=== PATIENT | male | born 1950 | race African-American/Black ===

== ENCOUNTER 2017-07-30 10:45 | Inpatient (IN) ==
[2017-07-30 11:34] LABS: Basophils % 0.1 % (0.0-0.8); Eosinophils # 0.2 10*3/uL (0.0-0.87); Eosinophils % 1.3 % (0.00-10.9); Hematocrit 34.4 VOL% (42.0-52.0); Hemoglobin 10.7 GM/DL (14.0-18.0); Immature Granulocytes % 0.7 %; Lymphocytes # 1.6 10*3/uL (1.4-4.0); Lymphocytes % 11.3 % (21.2-54.2); Mean Corpuscular HGB Conc 31.1 GM/DL (32-36); Mean Corpuscular Hemoglobin 27 PG (27-34); Mean Corpuscular Volume 87.3 FL (87-102); Mean Platelet Volume 12.3 FL (9.6-12.0); Monocytes # 1.4 10*3/uL (0.11-0.8); Monocytes % 10.2 % (1.7-12.7); Neutrophils # 10.5 10*3/uL (1.4-7.4); Neutrophils % 76.4 % (38.7-73.9); Platelet Count 193 T/CUMM (130-400); Red Blood Count 3.94 MC/CUMM (3.8-5.5); Red Cell Distribution Width 14.9 % (9.3-17.3); White Blood Count 13.7 T/CUMM (4-12)
[2017-07-30 11:53] LABS: Band Neutrophils 1 % (0-10); Eosinophils 1 % (0-10); Hypochromasia 1+; Lymphocytes 17 % (20-55); Segmented Neutrophils 73 % (50-85); Total Cells Counted 100
[2017-07-30 11:54] LABS: Microcytosis Slight; Platelet Estimate Adequate
[2017-07-30 12:01] LABS: Calcium 9.1 MG/DL (8.5-10.1); Osmolality,Calculated 286.3 MOS/KG (273-304); Potassium 3.8 MMOL/L (3.5-5.1); Uric Acid 5.6 MG/DL (3.5-7.2)
[2017-07-30] MEDS ORDERED: CEFTAROLINE 600 MG in SODIUM CHLORIDE 0.9% 100 ML IV STA (12:11)
[2017-07-30] MEDS ORDERED: CEFTAROLINE 600 MG VIAL IV ONE (12:22)
[2017-07-30] MEDS ORDERED: SODIUM CHLORIDE 0.9% 1,000 ML IV SCH (15:43)
[2017-07-30] MEDS ORDERED: ENOXAPARIN 40 MG/0.4 ML SYRINGE SUBCUT SCH (15:43)
[2017-07-30] MEDS ORDERED: MORPHINE 2 MG/1 ML SYRINGE IV PRN (15:43)
[2017-07-30] MEDS: CEFTAROLINE 600 MG in SODIUM CHLORIDE 0.9% 100 ML IV SCH (17:47)
[2017-07-30 22:59] LABS: Apearance,Urine CLEAR (Clear); Bilirubin,Urine Negative (Negative); Blood, Urine Negative (Negative); Glucose,Urine (UA) Negative (Negative); Hyaline Casts,Urine 1 /LPF (0-3); Ketones,Urine Negative (Negative); Mucus,Urine Occasional /LPF (Occasional); Nitrite,Urine Negative (Negative); Protein,Urine 100 MG/DL; RBC,Urine <1 /HPF (0-4); Urine Color Yellow (Yellow); Urine Specific Gravity 1.016 (1.001-1.035); WBC,Urine 1 /HPF (0-6)
[2017-07-31] MEDS ORDERED: hydrALAZINE 20 MG/1 ML VIAL IV PRN (00:36)
[2017-07-31] MEDS: CEFTAROLINE 600 MG in SODIUM CHLORIDE 0.9% 100 ML IV SCH ×2 (05:00→14:31)
[2017-07-31 06:07] LABS: Basophils % 0.4 % (0.0-0.8); Eosinophils # 0.2 10*3/uL (0.0-0.87); Eosinophils % 1.5 % (0.00-10.9); Hematocrit 30.1 VOL% (42.0-52.0); Hemoglobin 9.7 GM/DL (14.0-18.0); Immature Granulocytes % 0.7 %; Immature Granulocytes Absolute 0.08 #; Lymphocytes # 1.3 10*3/uL (1.4-4.0); Lymphocytes % 12.2 % (21.2-54.2); Mean Corpuscular HGB Conc 32.2 GM/DL (32-36); Mean Corpuscular Hemoglobin 27 PG (27-34); Mean Corpuscular Volume 84.8 FL (87-102); Mean Platelet Volume 12.1 FL (9.6-12.0); Monocytes # 1.2 10*3/uL (0.11-0.8); Monocytes % 10.7 % (1.7-12.7); Neutrophils # 8.1 10*3/uL (1.4-7.4); Neutrophils % 74.5 % (38.7-73.9); Platelet Count 182 T/CUMM (130-400); Red Blood Count 3.55 MC/CUMM (3.8-5.5); Red Cell Distribution Width 14.7 % (9.3-17.3); White Blood Count 10.9 T/CUMM (4-12)
[2017-07-31 06:33] LABS: Calcium 8.4 MG/DL (8.5-10.1); Osmolality,Calculated 286.1 MOS/KG (273-304); Potassium 3.9 MMOL/L (3.5-5.1)
[2017-07-31 06:37] LABS: Hypochromasia 2+; Microcytosis 2+
[2017-07-31] MEDS ORDERED: DILTIAZEM CD 120 MG CAPSULE PO SCH (09:00)
[2017-07-31] MEDS ORDERED: ROSUVASTATIN 10 MG TABLET PO SCH (09:00)
[2017-07-31] MEDS ORDERED: MULTIVITAMIN (CENTRUM) TABLET PO SCH (09:00)
[2017-07-31] MEDS ORDERED: amLODIPine 5 MG TABLET PO SCH (09:00)
[2017-07-31] MEDS ORDERED: LOSARTAN 50 MG TABLET PO SCH (09:00)
[2017-07-31] MEDS ORDERED: PANTOPRAZOLE 40 MG TABLET PO SCH (09:00)
[2017-07-31] MEDS ORDERED: FUROSEMIDE 20 MG TABLET PO SCH (09:00)
[2017-07-31] MEDS ORDERED: SODIUM CHLORIDE 0.9% 1,000 ML IV SCH (09:30)
[2017-07-31 16:04] VITALS: BP 151/79
== END 2017-07-31 16:40 | disposition home health service (06) | DRG 603 ==
LOC: N.ED 10:45 → N.EDINP 12:56 → N.2E 15:30

== ENCOUNTER 2017-10-24 14:09 | Observation (INO) ==
[2017-10-24 14:51] LABS: Basophils % 0.5 % (0.0-0.8); Eosinophils # 0.3 10*3/uL (0.0-0.87); Eosinophils % 4.9 % (0.00-10.9); Hematocrit 36.4 VOL% (42.0-52.0); Hemoglobin 11.7 GM/DL (14.0-18.0); Immature Granulocytes % 0.3 %; Immature Granulocytes Absolute 0.02 #; Lymphocytes # 1.3 10*3/uL (1.4-4.0); Mean Corpuscular HGB Conc 32.1 GM/DL (32-36); Mean Corpuscular Hemoglobin 27 PG (27-34); Mean Corpuscular Volume 85.2 FL (87-102); Monocytes # 0.6 10*3/uL (0.11-0.8); Monocytes % 9.6 % (1.7-12.7); Neutrophils # 3.8 10*3/uL (1.4-7.4); Neutrophils % 63.7 % (38.7-73.9); Platelet Count 199 T/CUMM (130-400); Red Blood Count 4.27 MC/CUMM (3.8-5.5); Red Cell Distribution Width 15.9 % (9.3-17.3)
[2017-10-24 15:15] LABS: Alanine Aminotransferase 24 U/L (16-61); Albumin 2.7 G/DL (3.4-5.0); Alkaline Phosphatase 109 U/L (45-117); Aspartate Amino Transferase 28 U/L (0-37); Bilirubin,Total < 0.39 MG/DL (0.2-1.0); Blood Urea Nitrogen 24 MG/DL (7-18); Calcium 8.8 MG/DL (8.5-10.1); Glucose 102 MG/DL (74-106); Potassium 3.7 MMOL/L (3.5-5.1); Sodium 143 MMOL/L (136-145); Total Protein 6.5 G/DL (6.4-8.3)
[2017-10-24 15:16] LABS: Troponin I Only 0.059 NG/ML (0.00-0.045)
[2017-10-24] MEDS ORDERED: METOPROLOL TARTRATE 50 MG TABLET PO STA (16:00)
[2017-10-24] MEDS ORDERED: FUROSEMIDE 80 MG TABLET PO STA (16:00)
[2017-10-24] MEDS ORDERED: NITROGLYCERIN 2% OINT 1 INCH/GM PACK TOP STA (16:02)
[2017-10-24] MEDS ORDERED: ASPIRIN 325 MG TABLET PO STA (16:08)
[2017-10-24] MEDS ORDERED: hydrALAZINE 20 MG/1 ML VIAL IV STA (17:07)
[2017-10-24] MEDS ORDERED: ACETAMINOPHEN 325 MG TABLET PO PRN (17:55)
[2017-10-24] MEDS ORDERED: ONDANSETRON 4 MG/2 ML VIAL IV PRN (17:55)
[2017-10-24] MEDS: hydrALAZINE 25 MG TABLET PO SCH (20:34)
[2017-10-24] MEDS: ENOXAPARIN 40 MG/0.4 ML SYRINGE SUBCUT SCH (20:35)
[2017-10-25 05:26] LABS: Basophils % 0.6 % (0.0-0.8); Eosinophils # 0.4 10*3/uL (0.0-0.87); Eosinophils % 4.9 % (0.00-10.9); Hemoglobin 11.5 GM/DL (14.0-18.0); Immature Granulocytes % 0.4 %; Immature Granulocytes Absolute 0.03 #; Lymphocytes # 1.9 10*3/uL (1.4-4.0); Lymphocytes % 26.5 % (21.2-54.2); Mean Corpuscular HGB Conc 31.9 GM/DL (32-36); Mean Corpuscular Hemoglobin 27 PG (27-34); Mean Corpuscular Volume 84.3 FL (87-102); Mean Platelet Volume 12.1 FL (9.6-12.0); Monocytes # 0.7 10*3/uL (0.11-0.8); Monocytes % 10.3 % (1.7-12.7); Neutrophils # 4.1 10*3/uL (1.4-7.4); Neutrophils % 57.3 % (38.7-73.9); Platelet Count 200 T/CUMM (130-400); Red Blood Count 4.27 MC/CUMM (3.8-5.5); Red Cell Distribution Width 15.9 % (9.3-17.3); White Blood Count 7.2 T/CUMM (4-12)
[2017-10-25] MEDS: hydrALAZINE 20 MG/1 ML VIAL IV PRN ×2 (05:30→15:53)
[2017-10-25 06:03] LABS: Calcium 8.6 MG/DL (8.5-10.1); Potassium 3.8 MMOL/L (3.5-5.1)
[2017-10-25] MEDS ORDERED: DILTIAZEM CD 240 MG CAPSULE PO SCH (09:00)
[2017-10-25] MEDS ORDERED: FUROSEMIDE 40 MG TABLET PO SCH (09:00)
[2017-10-25] MEDS: hydrALAZINE 25 MG TABLET PO SCH (09:11)
[2017-10-25] MEDS: LOSARTAN 50 MG TABLET PO SCH (09:11)
[2017-10-25] MEDS: MULTIVITAMIN (CENTRUM) TABLET PO SCH (09:11)
[2017-10-25] MEDS: ROSUVASTATIN 10 MG TABLET PO SCH (09:11)
[2017-10-25] MEDS: METOPROLOL SUCCINATE XL 25 MG TABLET PO SCH (09:11)
[2017-10-25] MEDS ORDERED: FUROSEMIDE 40 MG/4 ML VIAL IV ONE (11:42)
[2017-10-25] MEDS ORDERED: FUROSEMIDE 40 MG/4 ML VIAL IV SCH (12:00)
[2017-10-25] MEDS: FUROSEMIDE 40 MG/4 ML VIAL IV SCH (21:09)
[2017-10-25] MEDS: ENOXAPARIN 40 MG/0.4 ML SYRINGE SUBCUT SCH (21:09)
[2017-10-26] MEDS ORDERED: NIFEdipine 10 MG CAPSULE PO ONE (01:00)
[2017-10-26] MEDS ORDERED: cloNIDine 0.1 MG TABLET PO ONE (03:35)
[2017-10-26 06:29] LABS: Calcium 8.4 MG/DL (8.5-10.1); Osmolality,Calculated 288.1 MOS/KG (273-304); Potassium 3.9 MMOL/L (3.5-5.1)
[2017-10-26 07:57] VITALS: BP 138/77
[2017-10-26] MEDS: MULTIVITAMIN (CENTRUM) TABLET PO SCH (09:20)
[2017-10-26] MEDS: ROSUVASTATIN 10 MG TABLET PO SCH (09:20)
[2017-10-26] MEDS: LOSARTAN 50 MG TABLET PO SCH (09:20)
[2017-10-26] MEDS: METOPROLOL SUCCINATE XL 25 MG TABLET PO SCH (09:20)
[2017-10-26] MEDS: FUROSEMIDE 40 MG/4 ML VIAL IV SCH (09:20)
== END 2017-10-26 11:58 | disposition home or self-care (01) ==
LOC: N.ED 14:09 → N.EDINP 14:09 → N.TELEN 18:21
PROVIDERS: ADMIT Internal Medicine; ATTEND Internal Medicine

== ENCOUNTER 2018-01-19 10:00 | Inpatient (IN) ==
[2018-01-19] MEDS ORDERED: FUROSEMIDE 100 MG/10 ML VIAL IV STA (10:24)
[2018-01-19] MEDS ORDERED: NITROGLYCERIN 2% OINT 1 INCH/GM PACK TOP STA (10:24)
[2018-01-19 10:53] LABS: Basophils % 0.2 % (0.0-0.8); Eosinophils # 0.1 10*3/uL (0.0-0.87); Hematocrit 35.6 VOL% (42.0-52.0); Hemoglobin 11.3 GM/DL (14.0-18.0); Immature Granulocytes % 0.4 %; Immature Granulocytes Absolute 0.03 #; Lymphocytes # 0.9 10*3/uL (1.4-4.0); Lymphocytes % 10.5 % (21.2-54.2); Mean Corpuscular HGB Conc 31.7 GM/DL (32-36); Mean Corpuscular Hemoglobin 27 PG (27-34); Mean Corpuscular Volume 85.6 FL (87-102); Mean Platelet Volume 13.8 FL (9.6-12.0); Monocytes # 0.8 10*3/uL (0.11-0.8); Monocytes % 9.9 % (1.7-12.7); Neutrophils # 6.3 10*3/uL (1.4-7.4); Platelet Count 149 T/CUMM (130-400); Red Blood Count 4.16 MC/CUMM (3.8-5.5); Red Cell Distribution Width 15.2 % (9.3-17.3); White Blood Count 8.1 T/CUMM (4-12)
[2018-01-19 11:10] LABS: Hypochromasia 1+
[2018-01-19 11:11] LABS: Platelet Estimate Adequate
[2018-01-19 11:31] LABS: Albumin 2.6 G/DL (3.4-5.0); Bilirubin,Total 0.6 MG/DL (0.2-1.0); Osmolality,Calculated 284.3 MOS/KG (273-304); Potassium 5.1 MMOL/L (3.5-5.1); Total Protein 7.3 G/DL (6.4-8.3)
[2018-01-19 11:42] LABS: Apearance,Urine Clear (Clear); Protein,Urine 100 MG/DL; Urine Color Colorless (Yellow); Urine Specific Gravity 1.005 (1.001-1.035)
[2018-01-19 11:43] LABS: Bilirubin,Urine Negative (Negative); Blood, Urine Negative (Negative); Glucose,Urine (UA) Negative (Negative); Ketones,Urine Negative (Negative); Nitrite,Urine Negative (Negative); RBC,Urine 0-2 /HPF (0-4); Urine Urobilinogen 0.2 EU/DL (0.2-1.0)
[2018-01-19] MEDS ORDERED: hydrALAZINE 20 MG/1 ML VIAL IV STA (12:33)
[2018-01-19] MEDS ORDERED: ONDANSETRON 4 MG/2 ML VIAL IV PRN (15:30)
[2018-01-19] MEDS ORDERED: ACETAMINOPHEN 325 MG TABLET PO PRN (15:30)
[2018-01-19] MEDS ORDERED: ALBUTEROL 2.5 MG/3 ML NEB RESP TX PRN (15:45)
[2018-01-19] MEDS: ENOXAPARIN 40 MG/0.4 ML SYRINGE SUBCUT SCH (17:17)
[2018-01-19] MEDS: LEVOFLOXACIN INJ 500 MG in PREMIX 1 EACH IV SCH (17:17)
[2018-01-19] MEDS: ALBUTEROL/IPRATROPIUM 3 ML NEB RESP TX SCH (18:55)
[2018-01-19] MEDS: hydrALAZINE 20 MG/1 ML VIAL IV PRN (20:57)
[2018-01-19] MEDS ORDERED: cloNIDine 0.1 MG TABLET PO ONE (22:30)
[2018-01-20] MEDS: ALBUTEROL/IPRATROPIUM 3 ML NEB RESP TX SCH ×4 (00:32→20:56)
[2018-01-20 05:35] LABS: Basophils % 0.4 % (0.0-0.8); Eosinophils # 0.1 10*3/uL (0.0-0.87); Eosinophils % 1.1 % (0.00-10.9); Hematocrit 33.1 VOL% (42.0-52.0); Hemoglobin 10.3 GM/DL (14.0-18.0); Immature Granulocytes % 0.4 %; Immature Granulocytes Absolute 0.03 #; Lymphocytes % 12.9 % (21.2-54.2); Mean Corpuscular HGB Conc 31.1 GM/DL (32-36); Mean Corpuscular Hemoglobin 27 PG (27-34); Mean Corpuscular Volume 86.2 FL (87-102); Monocytes # 0.9 10*3/uL (0.11-0.8); Monocytes % 11.2 % (1.7-12.7); Platelet Count 168 T/CUMM (130-400); Red Blood Count 3.84 MC/CUMM (3.8-5.5); White Blood Count 8.1 T/CUMM (4-12)
[2018-01-20 06:23] LABS: Albumin 2.4 G/DL (3.4-5.0); Bilirubin,Total 0.8 MG/DL (0.2-1.0); Calcium 8.8 MG/DL (8.5-10.1); Osmolality,Calculated 292.7 MOS/KG (273-304); Potassium 3.5 MMOL/L (3.5-5.1); Risk Ratio 4.83; Thyroid Stimulating Hormone 0.689 uIU/ml (0.358-3.74); Total Protein 6.6 G/DL (6.4-8.3)
[2018-01-20] MEDS: hydrALAZINE 20 MG/1 ML VIAL IV PRN ×2 (07:47→13:59)
[2018-01-20] MEDS: METOPROLOL SUCCINATE XL 25 MG TABLET PO SCH ×2 (07:51→09:48)
[2018-01-20] MEDS: PANTOPRAZOLE 40 MG TABLET PO SCH ×2 (07:51→09:48)
[2018-01-20] MEDS: LOSARTAN 50 MG TABLET PO SCH ×2 (09:10→20:49)
[2018-01-20] MEDS: FUROSEMIDE 40 MG/4 ML VIAL IV SCH (09:11)
[2018-01-20] MEDS: cloNIDine 0.1 MG TABLET PO PRN ×3 (15:52→21:56)
[2018-01-20] MEDS: ENOXAPARIN 40 MG/0.4 ML SYRINGE SUBCUT SCH (17:36)
[2018-01-20] MEDS: LEVOFLOXACIN INJ 500 MG in PREMIX 1 EACH IV SCH (17:37)
[2018-01-21] MEDS: ALBUTEROL/IPRATROPIUM 3 ML NEB RESP TX SCH ×4 (00:05→20:06)
[2018-01-21] MEDS: hydrALAZINE 20 MG/1 ML VIAL IV PRN (00:25)
[2018-01-21 05:26] LABS: Basophils % 0.4 % (0.0-0.8); Eosinophils # 0.3 10*3/uL (0.0-0.87); Eosinophils % 3.5 % (0.00-10.9); Hematocrit 33.4 VOL% (42.0-52.0); Hemoglobin 10.7 GM/DL (14.0-18.0); Immature Granulocytes % 0.3 %; Immature Granulocytes Absolute 0.02 #; Lymphocytes # 1.2 10*3/uL (1.4-4.0); Lymphocytes % 16.5 % (21.2-54.2); Mean Corpuscular Hemoglobin 27 PG (27-34); Mean Corpuscular Volume 84.3 FL (87-102); Mean Platelet Volume 13.6 FL (9.6-12.0); Monocytes # 0.8 10*3/uL (0.11-0.8); Monocytes % 11.6 % (1.7-12.7); Neutrophils # 4.9 10*3/uL (1.4-7.4); Neutrophils % 67.7 % (38.7-73.9); Platelet Count 179 T/CUMM (130-400); Red Blood Count 3.96 MC/CUMM (3.8-5.5); Red Cell Distribution Width 15.3 % (9.3-17.3); White Blood Count 7.2 T/CUMM (4-12)
[2018-01-21 05:41] LABS: Albumin 2.4 G/DL (3.4-5.0); Bilirubin,Total 0.4 MG/DL (0.2-1.0); Calcium 9.3 MG/DL (8.5-10.1); Osmolality,Calculated 288.1 MOS/KG (273-304); Potassium 3.4 MMOL/L (3.5-5.1); Total Protein 6.8 G/DL (6.4-8.3)
[2018-01-21 05:42] LABS: % Iron Saturation 18.7 % (18-50); Ferritin 139.1 ng/ml (26-388)
[2018-01-21 07:01] LABS: Folate 17.8 NG/ML (5.4-24.0)
[2018-01-21] MEDS: FUROSEMIDE 40 MG/4 ML VIAL IV SCH (08:47)
[2018-01-21] MEDS: PANTOPRAZOLE 40 MG TABLET PO SCH (08:48)
[2018-01-21] MEDS: ROSUVASTATIN 20 MG TABLET PO SCH (08:48)
[2018-01-21] MEDS: LOSARTAN 50 MG TABLET PO SCH ×2 (08:48→21:09)
[2018-01-21] MEDS: METOPROLOL SUCCINATE XL 50 MG TABLET PO SCH (08:48)
[2018-01-21 13:51] LABS: Microalbum/Creat Ratio Random 2182.2 RATIO (0-30)
[2018-01-21] MEDS: LEVOFLOXACIN INJ 500 MG in PREMIX 1 EACH IV SCH (17:33)
[2018-01-21] MEDS: ENOXAPARIN 40 MG/0.4 ML SYRINGE SUBCUT SCH (17:33)
[2018-01-21] MEDS: cloNIDine 0.1 MG TABLET PO PRN (17:34)
[2018-01-22 00:11] LABS: Collection Time,Urine 24 HOURS; Total Protein 24 Hr Ur Result 3588 MG/24HR (0-149.1); Total Volume,Urine 1380 ML (400-2000)
[2018-01-22] MEDS: ALBUTEROL/IPRATROPIUM 3 ML NEB RESP TX SCH ×4 (01:17→19:24)
[2018-01-22 04:18] LABS: Basophils % 0.3 % (0.0-0.8); Eosinophils # 0.3 10*3/uL (0.0-0.87); Eosinophils % 4.8 % (0.00-10.9); Hematocrit 32.2 VOL% (42.0-52.0); Hemoglobin 10.3 GM/DL (14.0-18.0); Immature Granulocytes % 0.4 %; Immature Granulocytes Absolute 0.03 #; Lymphocytes # 0.9 10*3/uL (1.4-4.0); Lymphocytes % 13.4 % (21.2-54.2); Mean Corpuscular Hemoglobin 27 PG (27-34); Mean Corpuscular Volume 84.1 FL (87-102); Mean Platelet Volume 13.5 FL (9.6-12.0); Monocytes # 0.8 10*3/uL (0.11-0.8); Neutrophils # 4.7 10*3/uL (1.4-7.4); Neutrophils % 69.1 % (38.7-73.9); Platelet Count 172 T/CUMM (130-400); Red Blood Count 3.83 MC/CUMM (3.8-5.5); Red Cell Distribution Width 15.3 % (9.3-17.3); White Blood Count 6.9 T/CUMM (4-12)
[2018-01-22 04:49] LABS: Albumin 2.5 G/DL (3.4-5.0); Bilirubin,Total 0.5 MG/DL (0.2-1.0); Calcium 8.7 MG/DL (8.5-10.1); Osmolality,Calculated 286.1 MOS/KG (273-304); Potassium 3.4 MMOL/L (3.5-5.1); Total Protein 6.3 G/DL (6.4-8.3)
[2018-01-22] MEDS: POTASSIUM CHLORIDE 20 MEQ TABLET PO PRN ×3 (05:58→12:08)
[2018-01-22] MEDS: LOSARTAN 50 MG TABLET PO SCH ×2 (09:40→21:10)
[2018-01-22] MEDS: ROSUVASTATIN 20 MG TABLET PO SCH (09:40)
[2018-01-22] MEDS: PANTOPRAZOLE 40 MG TABLET PO SCH (09:40)
[2018-01-22] MEDS: METOPROLOL SUCCINATE XL 50 MG TABLET PO SCH (09:41)
[2018-01-22] MEDS: metOLazone 5 MG TABLET PO SCH (09:41)
[2018-01-22] MEDS: FUROSEMIDE 40 MG/4 ML VIAL IV SCH ×2 (09:44→17:06)
[2018-01-22] MEDS: ENOXAPARIN 40 MG/0.4 ML SYRINGE SUBCUT SCH (17:07)
[2018-01-22] MEDS: LEVOFLOXACIN INJ 500 MG in PREMIX 1 EACH IV SCH (17:07)
[2018-01-23] MEDS: ALBUTEROL/IPRATROPIUM 3 ML NEB RESP TX SCH ×4 (00:37→19:53)
[2018-01-23 05:22] LABS: Basophils % 0.3 % (0.0-0.8); Eosinophils # 0.3 10*3/uL (0.0-0.87); Eosinophils % 3.4 % (0.00-10.9); Hematocrit 33.7 VOL% (42.0-52.0); Hemoglobin 10.6 GM/DL (14.0-18.0); Immature Granulocytes % 0.4 %; Immature Granulocytes Absolute 0.03 #; Lymphocytes # 1.1 10*3/uL (1.4-4.0); Lymphocytes % 15.1 % (21.2-54.2); Mean Corpuscular HGB Conc 31.5 GM/DL (32-36); Mean Corpuscular Hemoglobin 27 PG (27-34); Mean Corpuscular Volume 86.2 FL (87-102); Mean Platelet Volume 13.5 FL (9.6-12.0); Monocytes # 1.1 10*3/uL (0.11-0.8); Monocytes % 14.3 % (1.7-12.7); Neutrophils # 4.9 10*3/uL (1.4-7.4); Neutrophils % 66.5 % (38.7-73.9); Platelet Count 190 T/CUMM (130-400); Red Blood Count 3.91 MC/CUMM (3.8-5.5); Red Cell Distribution Width 15.3 % (9.3-17.3); White Blood Count 7.4 T/CUMM (4-12)
[2018-01-23 05:33] LABS: Calcium 9.5 MG/DL (8.5-10.1); Osmolality,Calculated 287.3 MOS/KG (273-304); Potassium 3.7 MMOL/L (3.5-5.1)
[2018-01-23 05:34] LABS: Alanine Aminotransferase 24 U/L (16-61); Albumin 2.5 G/DL (3.4-5.0); Alkaline Phosphatase 108 U/L (45-117); Aspartate Amino Transferase 22 U/L (0-37); Bilirubin,Total < 0.39 MG/DL (0.2-1.0); Blood Urea Nitrogen 34 MG/DL (7-18); Calcium 9.5 MG/DL (8.5-10.1); Glucose 97 MG/DL (74-106); Osmolality,Calculated 282.7 MOS/KG (273-304); Potassium 3.7 MMOL/L (3.5-5.1); Sodium 138 MMOL/L (136-145); Total Protein 7.1 G/DL (6.4-8.3)
[2018-01-23] MEDS: FUROSEMIDE 40 MG/4 ML VIAL IV SCH ×2 (08:55→17:49)
[2018-01-23] MEDS: PANTOPRAZOLE 40 MG TABLET PO SCH (08:56)
[2018-01-23] MEDS: metOLazone 5 MG TABLET PO SCH (08:56)
[2018-01-23] MEDS: LOSARTAN 50 MG TABLET PO SCH ×2 (08:57→20:58)
[2018-01-23] MEDS: ROSUVASTATIN 20 MG TABLET PO SCH (08:57)
[2018-01-23] MEDS: METOPROLOL SUCCINATE XL 50 MG TABLET PO SCH (08:58)
[2018-01-23] MEDS: LEVOFLOXACIN INJ 500 MG in PREMIX 1 EACH IV SCH (17:49)
[2018-01-23] MEDS: ENOXAPARIN 40 MG/0.4 ML SYRINGE SUBCUT SCH (17:50)
[2018-01-24] MEDS: ALBUTEROL/IPRATROPIUM 3 ML NEB RESP TX SCH ×4 (00:14→19:07)
[2018-01-24 04:53] LABS: Basophils % 0.3 % (0.0-0.8); Eosinophils # 0.2 10*3/uL (0.0-0.87); Eosinophils % 2.9 % (0.00-10.9); Hematocrit 34.4 VOL% (42.0-52.0); Hemoglobin 11.1 GM/DL (14.0-18.0); Immature Granulocytes % 0.6 %; Immature Granulocytes Absolute 0.04 #; Lymphocytes # 1.1 10*3/uL (1.4-4.0); Lymphocytes % 15.5 % (21.2-54.2); Mean Corpuscular HGB Conc 32.3 GM/DL (32-36); Mean Corpuscular Hemoglobin 27 PG (27-34); Mean Corpuscular Volume 83.5 FL (87-102); Monocytes # 0.8 10*3/uL (0.11-0.8); Monocytes % 11.7 % (1.7-12.7); Neutrophils # 4.8 10*3/uL (1.4-7.4); Platelet Count 199 T/CUMM (130-400); Red Blood Count 4.12 MC/CUMM (3.8-5.5); Red Cell Distribution Width 15.1 % (9.3-17.3); White Blood Count 6.9 T/CUMM (4-12)
[2018-01-24 05:18] LABS: Albumin 2.5 G/DL (3.4-5.0); Bilirubin,Total 0.5 MG/DL (0.2-1.0); Calcium 9.6 MG/DL (8.5-10.1); Osmolality,Calculated 283.7 MOS/KG (273-304); Potassium 3.9 MMOL/L (3.5-5.1); Total Protein 7.1 G/DL (6.4-8.3)
[2018-01-24] MEDS: FUROSEMIDE 40 MG/4 ML VIAL IV SCH ×2 (09:26→16:24)
[2018-01-24] MEDS: PANTOPRAZOLE 40 MG TABLET PO SCH (09:27)
[2018-01-24] MEDS: metOLazone 5 MG TABLET PO SCH (09:27)
[2018-01-24] MEDS: ROSUVASTATIN 20 MG TABLET PO SCH (09:27)
[2018-01-24] MEDS: METOPROLOL SUCCINATE XL 50 MG TABLET PO SCH (09:31)
[2018-01-24] MEDS: LEVOFLOXACIN INJ 500 MG in PREMIX 1 EACH IV SCH ×2 (16:22→19:00)
[2018-01-24] MEDS: ENOXAPARIN 40 MG/0.4 ML SYRINGE SUBCUT SCH (16:23)
[2018-01-25] MEDS: ALBUTEROL/IPRATROPIUM 3 ML NEB RESP TX SCH ×4 (00:08→19:18)
[2018-01-25 05:26] LABS: Basophils % 0.3 % (0.0-0.8); Eosinophils # 0.3 10*3/uL (0.0-0.87); Eosinophils % 3.3 % (0.00-10.9); Hematocrit 37.1 VOL% (42.0-52.0); Hemoglobin 11.8 GM/DL (14.0-18.0); Immature Granulocytes % 0.5 %; Immature Granulocytes Absolute 0.04 #; Lymphocytes # 1.6 10*3/uL (1.4-4.0); Lymphocytes % 20.1 % (21.2-54.2); Mean Corpuscular HGB Conc 31.8 GM/DL (32-36); Mean Corpuscular Hemoglobin 27 PG (27-34); Mean Corpuscular Volume 84.3 FL (87-102); Mean Platelet Volume 11.9 FL (9.6-12.0); Monocytes # 0.9 10*3/uL (0.11-0.8); Monocytes % 10.8 % (1.7-12.7); Neutrophils # 5.1 10*3/uL (1.4-7.4); Platelet Count 232 T/CUMM (130-400); Red Cell Distribution Width 14.7 % (9.3-17.3); White Blood Count 7.9 T/CUMM (4-12)
[2018-01-25 05:55] LABS: Alanine Aminotransferase 29 U/L (16-61); Albumin 2.8 G/DL (3.4-5.0); Alkaline Phosphatase 126 U/L (45-117); Aspartate Amino Transferase 23 U/L (0-37); Bilirubin,Total < 0.39 MG/DL (0.2-1.0); Blood Urea Nitrogen 50 MG/DL (7-18); Calcium 9.8 MG/DL (8.5-10.1); Glucose 118 MG/DL (74-106); Potassium 3.5 MMOL/L (3.5-5.1); Sodium 136 MMOL/L (136-145)
[2018-01-25] MEDS: PANTOPRAZOLE 40 MG TABLET PO SCH (08:37)
[2018-01-25] MEDS: ROSUVASTATIN 20 MG TABLET PO SCH (08:37)
[2018-01-25] MEDS: METOPROLOL SUCCINATE XL 50 MG TABLET PO SCH (08:38)
[2018-01-25] MEDS: ENOXAPARIN 40 MG/0.4 ML SYRINGE SUBCUT SCH (18:32)
[2018-01-25] MEDS: LEVOFLOXACIN INJ 500 MG in PREMIX 1 EACH IV SCH (18:33)
[2018-01-26] MEDS: ALBUTEROL/IPRATROPIUM 3 ML NEB RESP TX SCH ×4 (00:06→19:04)
[2018-01-26 04:45] LABS: Basophils % 0.3 % (0.0-0.8); Eosinophils # 0.2 10*3/uL (0.0-0.87); Eosinophils % 2.4 % (0.00-10.9); Hematocrit 34.1 VOL% (42.0-52.0); Hemoglobin 10.7 GM/DL (14.0-18.0); Immature Granulocytes % 0.3 %; Immature Granulocytes Absolute 0.02 #; Lymphocytes # 1.2 10*3/uL (1.4-4.0); Lymphocytes % 15.1 % (21.2-54.2); Mean Corpuscular HGB Conc 31.4 GM/DL (32-36); Mean Corpuscular Hemoglobin 27 PG (27-34); Mean Corpuscular Volume 85.3 FL (87-102); Mean Platelet Volume 12.6 FL (9.6-12.0); Monocytes % 12.7 % (1.7-12.7); Neutrophils # 5.5 10*3/uL (1.4-7.4); Neutrophils % 69.2 % (38.7-73.9); Platelet Count 212 T/CUMM (130-400); Red Cell Distribution Width 14.7 % (9.3-17.3); White Blood Count 7.9 T/CUMM (4-12)
[2018-01-26 05:22] LABS: Albumin 2.7 G/DL (3.4-5.0); Bilirubin,Total 0.5 MG/DL (0.2-1.0); Calcium 9.1 MG/DL (8.5-10.1); Osmolality,Calculated 286.8 MOS/KG (273-304); Potassium 3.8 MMOL/L (3.5-5.1); Total Protein 7.1 G/DL (6.4-8.3)
[2018-01-26] MEDS: ROSUVASTATIN 20 MG TABLET PO SCH (09:57)
[2018-01-26] MEDS: PANTOPRAZOLE 40 MG TABLET PO SCH (09:57)
[2018-01-26] MEDS: cloNIDine 0.1 MG TABLET PO PRN (09:58)
[2018-01-26] MEDS: FUROSEMIDE 40 MG TABLET PO SCH (09:58)
[2018-01-26] MEDS: METOPROLOL SUCCINATE XL 50 MG TABLET PO SCH (09:58)
[2018-01-26] MEDS: LEVOFLOXACIN INJ 500 MG in PREMIX 1 EACH IV SCH (17:16)
[2018-01-26] MEDS: ENOXAPARIN 40 MG/0.4 ML SYRINGE SUBCUT SCH (17:16)
[2018-01-27] MEDS: ALBUTEROL/IPRATROPIUM 3 ML NEB RESP TX SCH ×2 (00:58→08:41)
[2018-01-27 04:08] LABS: Basophils % 0.3 % (0.0-0.8); Eosinophils # 0.2 10*3/uL (0.0-0.87); Eosinophils % 2.6 % (0.00-10.9); Hemoglobin 11.2 GM/DL (14.0-18.0); Immature Granulocytes % 0.5 %; Immature Granulocytes Absolute 0.04 #; Lymphocytes # 1.4 10*3/uL (1.4-4.0); Mean Corpuscular Hemoglobin 27 PG (27-34); Mean Corpuscular Volume 84.1 FL (87-102); Mean Platelet Volume 12.3 FL (9.6-12.0); Monocytes % 12.8 % (1.7-12.7); Neutrophils # 5.3 10*3/uL (1.4-7.4); Neutrophils % 66.8 % (38.7-73.9); Platelet Count 254 T/CUMM (130-400); Red Blood Count 4.16 MC/CUMM (3.8-5.5); Red Cell Distribution Width 14.6 % (9.3-17.3)
[2018-01-27 04:57] LABS: Calcium 9.6 MG/DL (8.5-10.1); Osmolality,Calculated 287.8 MOS/KG (273-304); Potassium 4.1 MMOL/L (3.5-5.1)
[2018-01-27] MEDS: FUROSEMIDE 40 MG TABLET PO SCH (09:36)
[2018-01-27] MEDS: PANTOPRAZOLE 40 MG TABLET PO SCH (09:37)
[2018-01-27] MEDS: ROSUVASTATIN 20 MG TABLET PO SCH (09:37)
[2018-01-27] MEDS: METOPROLOL SUCCINATE XL 50 MG TABLET PO SCH (09:37)
[2018-01-27 12:39] VITALS: BP 163/71
== END 2018-01-27 13:29 | disposition home or self-care (01) | DRG 291 ==
LOC: N.ED 10:00 → N.EDINP 15:30 → SUATTDRO 15:30 → N.TELES 16:45
PROVIDERS: ATTEND Internal Medicine

== ENCOUNTER 2018-12-29 00:46 | Inpatient (IN) ==
[2018-12-29] MEDS ORDERED: FUROSEMIDE 100 MG/10 ML VIAL IV STA (01:25)
[2018-12-29 01:59] LABS: Basophils % 0.2 % (0.0-0.8); Eosinophils # 0.1 10*3/uL (0.0-0.87); Eosinophils % 0.9 % (0.00-10.9); Immature Granulocytes % 0.5 %; Immature Granulocytes Absolute 0.06 #; Lymphocytes # 0.8 10*3/uL (1.4-4.0); Lymphocytes % 6.5 % (21.2-54.2); Mean Corpuscular Volume 84.9 FL (87-102); Mean Platelet Volume 12.2 FL (9.6-12.0); Monocytes % 9.1 % (1.7-12.7); Neutrophils % 82.8 % (38.7-73.9); Platelet Count 220 T/CUMM (130-400); Red Blood Count 2.85 MC/CUMM (3.8-5.5); Red Cell Distribution Width 15.9 % (9.3-17.3); White Blood Count 11.5 T/CUMM (4-12)
[2018-12-29 02:00] LABS: Hematocrit 24.2 VOL% (42.0-52.0); Hemoglobin 7.5 GM/DL (14.0-18.0)
[2018-12-29 02:02] LABS: Alanine Aminotransferase 29 U/L (16-61); Albumin 2.9 G/DL (3.4-5.0); Alkaline Phosphatase 108 U/L (45-117); Aspartate Amino Transferase 23 U/L (0-37); Bilirubin,Total < 0.39 MG/DL (0.2-1.0); Blood Urea Nitrogen 47 MG/DL (7-18); Calcium 9.4 MG/DL (8.5-10.1); Glucose 129 MG/DL (74-106); Osmolality,Calculated 296.1 MOS/KG (273-304); Total Protein 7.1 G/DL (6.4-8.3)
[2018-12-29 02:04] LABS: INR 0.9; PT Patient Result 9.8 SECS
[2018-12-29] MEDS ORDERED: hydrALAZINE 20 MG/1 ML VIAL IV STA (03:04)
[2018-12-29] MEDS ORDERED: MORPHINE 4 MG/1 ML VIAL IV PRN (03:38)
[2018-12-29] MEDS ORDERED: diphenhydrAMINE CAP 25 MG CAPSULE PO PRN (03:38)
[2018-12-29] MEDS ORDERED: ACETAMINOPHEN 325 MG TABLET PO PRN (03:38)
[2018-12-29] MEDS ORDERED: ONDANSETRON 4 MG/2 ML VIAL IV PRN (03:38)
[2018-12-29] MEDS ORDERED: NICOTINE 21 MG/24 HR PATCH TRANSDERM PRN (03:38)
[2018-12-29] MEDS ORDERED: POTASSIUM CHLORIDE RIDER 10 MEQ in PREMIX 1 EACH IV PRN ×2 (04:00→07:33)
[2018-12-29] MEDS ORDERED: SODIUM CHLORIDE 0.9% 1,000 ML IV SCH (04:00)
[2018-12-29] MEDS ORDERED: hydrALAZINE 20 MG/1 ML VIAL IV PRN (05:43)
[2018-12-29] MEDS ORDERED: PANTOPRAZOLE 40 MG VIAL IV SCH (09:00)
[2018-12-29] MEDS ORDERED: METOPROLOL SUCCINATE XL 25 MG TABLET PO SCH (09:00)
[2018-12-29] MEDS: POTASSIUM CHLORIDE 20 MEQ TABLET PO PRN ×4 (09:24→16:00)
[2018-12-29] MEDS: ISOSORBIDE MONONITRATE 30 MG TABLET PO SCH (13:33)
[2018-12-29] MEDS: ASPIRIN EC 81 MG TABLET PO SCH (13:33)
[2018-12-29] MEDS: FUROSEMIDE 40 MG/4 ML VIAL IV SCH (16:57)
[2018-12-29] MEDS: PANTOPRAZOLE 40 MG TABLET PO SCH (20:17)
[2018-12-29] MEDS: METOPROLOL SUCCINATE XL 50 MG TABLET PO SCH (20:17)
[2018-12-29] MEDS: ROSUVASTATIN 20 MG TABLET PO SCH (20:17)
[2018-12-30 06:05] LABS: Basophils % 0.3 % (0.0-0.8); Eosinophils # 0.3 10*3/uL (0.0-0.87); Eosinophils % 3.8 % (0.00-10.9); Hematocrit 31.4 VOL% (42.0-52.0); Hemoglobin 9.8 GM/DL (14.0-18.0); Immature Granulocytes % 0.3 %; Immature Granulocytes Absolute 0.03 #; Lymphocytes # 1.2 10*3/uL (1.4-4.0); Lymphocytes % 13.4 % (21.2-54.2); Mean Corpuscular HGB Conc 31.2 GM/DL (32-36); Mean Corpuscular Volume 84.6 FL (87-102); Mean Platelet Volume 12.5 FL (9.6-12.0); Monocytes % 9.6 % (1.7-12.7); Neutrophils % 72.6 % (38.7-73.9); Platelet Count 235 T/CUMM (130-400); Red Blood Count 3.71 MC/CUMM (3.8-5.5); White Blood Count 8.9 T/CUMM (4-12)
[2018-12-30 06:41] LABS: Risk Ratio 4.36; VLDL CHOLESTEROL 22.6 MG/DL
[2018-12-30] MEDS: ASPIRIN EC 81 MG TABLET PO SCH (08:59)
[2018-12-30] MEDS: POTASSIUM CHLORIDE 20 MEQ TABLET PO PRN (09:00)
[2018-12-30] MEDS: PANTOPRAZOLE 40 MG TABLET PO SCH ×2 (09:00→20:44)
[2018-12-30] MEDS: FUROSEMIDE 40 MG/4 ML VIAL IV SCH ×2 (09:00→15:49)
[2018-12-30] MEDS: METOPROLOL SUCCINATE XL 50 MG TABLET PO SCH (09:00)
[2018-12-30] MEDS: ISOSORBIDE MONONITRATE 30 MG TABLET PO SCH (09:00)
[2018-12-30] MEDS: ROSUVASTATIN 20 MG TABLET PO SCH (20:45)
[2018-12-30] MEDS: METOPROLOL SUCCINATE XL 100 MG TABLET PO SCH (20:45)
[2018-12-31 06:13] LABS: Basophils % 0.3 % (0.0-0.8); Eosinophils # 0.4 10*3/uL (0.0-0.87); Eosinophils % 3.9 % (0.00-10.9); Hematocrit 31.1 VOL% (42.0-52.0); Hemoglobin 9.3 GM/DL (14.0-18.0); Immature Granulocytes % 0.5 %; Immature Granulocytes Absolute 0.05 #; Lymphocytes # 1.2 10*3/uL (1.4-4.0); Lymphocytes % 11.3 % (21.2-54.2); Mean Corpuscular HGB Conc 29.9 GM/DL (32-36); Mean Corpuscular Volume 85.9 FL (87-102); Mean Platelet Volume 12.6 FL (9.6-12.0); Monocytes % 11.4 % (1.7-12.7); Neutrophils % 72.6 % (38.7-73.9); Platelet Count 218 T/CUMM (130-400); Red Blood Count 3.62 MC/CUMM (3.8-5.5); White Blood Count 10.3 T/CUMM (4-12)
[2018-12-31 06:20] LABS: Calcium 9.1 MG/DL (8.5-10.1)
[2018-12-31] MEDS ORDERED: LIDOCAINE 1% 5 ML VIAL ONE (09:00)
[2018-12-31] MEDS ORDERED: PROPOFOL 200 MG/20 ML VIAL IV ONE (09:00)
[2018-12-31] MEDS ORDERED: REGADENOSON 0.4 MG/5 ML SYRINGE IV ONE (10:49)
[2018-12-31] MEDS: BISACODYL 5 MG TABLET PO SCH ×2 (12:40→17:59)
[2018-12-31] MEDS: ASPIRIN EC 81 MG TABLET PO SCH (12:40)
[2018-12-31] MEDS: METOPROLOL SUCCINATE XL 100 MG TABLET PO SCH ×2 (12:40→20:39)
[2018-12-31] MEDS: ISOSORBIDE MONONITRATE 30 MG TABLET PO SCH (12:40)
[2018-12-31] MEDS: FUROSEMIDE 40 MG/4 ML VIAL IV SCH ×2 (12:41→16:24)
[2018-12-31] MEDS: PANTOPRAZOLE 40 MG TABLET PO SCH ×2 (12:44→20:39)
[2018-12-31] MEDS ORDERED: POLYETHYLENE GLYCOL POWDER 255 GM BOTTLE PO ONE (18:00)
[2018-12-31] MEDS: PRAZOSIN 1 MG CAPSULE PO SCH (20:38)
[2018-12-31] MEDS: ROSUVASTATIN 20 MG TABLET PO SCH (20:39)
[2018-12-31] MEDS ORDERED: MAGNESIUM CITRATE 300 ML BOTTLE PO ONE (21:00)
[2019-01-01] MEDS: BISACODYL 5 MG TABLET PO SCH (02:00)
[2019-01-01 04:43] LABS: Basophils % 0.4 % (0.0-0.8); Eosinophils # 0.2 10*3/uL (0.0-0.87); Eosinophils % 2.5 % (0.00-10.9); Hematocrit 28.4 VOL% (42.0-52.0); Hemoglobin 8.6 GM/DL (14.0-18.0); Immature Granulocytes % 0.4 %; Immature Granulocytes Absolute 0.03 #; Lymphocytes % 11.3 % (21.2-54.2); Mean Corpuscular HGB Conc 30.3 GM/DL (32-36); Mean Corpuscular Volume 85.8 FL (87-102); Mean Platelet Volume 12.7 FL (9.6-12.0); Monocytes % 10.6 % (1.7-12.7); Neutrophils % 74.8 % (38.7-73.9); Platelet Count 192 T/CUMM (130-400); Red Blood Count 3.31 MC/CUMM (3.8-5.5); Red Cell Distribution Width 16.1 % (9.3-17.3); White Blood Count 8.6 T/CUMM (4-12)
[2019-01-01 04:54] LABS: Calcium 8.9 MG/DL (8.5-10.1); Osmolality,Calculated 294.1 MOS/KG (273-304)
[2019-01-01] MEDS ORDERED: GLYCOPYRROLATE 0.4 MG/2 ML VIAL ONE (09:00)
[2019-01-01] MEDS ORDERED: LIDOCAINE 2% 5 ML VIAL ONE (09:00)
[2019-01-01] MEDS ORDERED: PROPOFOL 200 MG/20 ML VIAL IV ONE (09:00)
[2019-01-01] MEDS ORDERED: PHENYLEPHRINE 1 MG/10 ML SYRINGE IV ONE (09:00)
[2019-01-01] MEDS: FUROSEMIDE 40 MG/4 ML VIAL IV SCH ×2 (09:23→16:23)
[2019-01-01] MEDS: PANTOPRAZOLE 40 MG TABLET PO SCH ×2 (09:24→21:41)
[2019-01-01] MEDS: ASPIRIN EC 81 MG TABLET PO SCH (10:06)
[2019-01-01] MEDS: PRAZOSIN 1 MG CAPSULE PO SCH ×2 (10:06→21:43)
[2019-01-01] MEDS: ISOSORBIDE MONONITRATE 30 MG TABLET PO SCH (10:06)
[2019-01-01] MEDS: METOPROLOL SUCCINATE XL 100 MG TABLET PO SCH ×2 (10:06→21:41)
[2019-01-01] MEDS ORDERED: SODIUM CHLORIDE 0.9% 1,000 ML IV SCH (11:00)
[2019-01-01] MEDS ORDERED: LACTATED RINGERS 1,000 ML IV SCH (11:00)
[2019-01-01] MEDS ORDERED: EZETIMIBE 10 MG TABLET PO SCH (21:00)
[2019-01-01] MEDS: ROSUVASTATIN 20 MG TABLET PO SCH (21:40)
[2019-01-02 05:13] LABS: Basophils % 0.2 % (0.0-0.8); Eosinophils # 0.3 10*3/uL (0.0-0.87); Eosinophils % 3.2 % (0.00-10.9); Hematocrit 28.9 VOL% (42.0-52.0); Hemoglobin 8.7 GM/DL (14.0-18.0); Immature Granulocytes % 0.5 %; Immature Granulocytes Absolute 0.04 #; Lymphocytes # 0.8 10*3/uL (1.4-4.0); Lymphocytes % 10.2 % (21.2-54.2); Mean Corpuscular HGB Conc 30.1 GM/DL (32-36); Mean Corpuscular Volume 86.3 FL (87-102); Monocytes % 9.7 % (1.7-12.7); Neutrophils % 76.2 % (38.7-73.9); Platelet Count 211 T/CUMM (130-400); Red Blood Count 3.35 MC/CUMM (3.8-5.5); Red Cell Distribution Width 16.1 % (9.3-17.3); White Blood Count 8.2 T/CUMM (4-12)
[2019-01-02 05:15] LABS: Calcium 8.9 MG/DL (8.5-10.1); Osmolality,Calculated 296.1 MOS/KG (273-304)
[2019-01-02] MEDS: PANTOPRAZOLE 40 MG TABLET PO SCH (08:46)
[2019-01-02] MEDS: PRAZOSIN 1 MG CAPSULE PO SCH (08:46)
[2019-01-02] MEDS: ISOSORBIDE MONONITRATE 30 MG TABLET PO SCH (08:46)
[2019-01-02] MEDS: METOPROLOL SUCCINATE XL 100 MG TABLET PO SCH (08:47)
[2019-01-02] MEDS: ASPIRIN EC 81 MG TABLET PO SCH (08:47)
[2019-01-02] MEDS: FUROSEMIDE 40 MG/4 ML VIAL IV SCH (09:39)
[2019-01-02 12:00] VITALS: BP 175/77
[2019-01-02] MEDS ORDERED: PRAZOSIN 1 MG CAPSULE PO SCH (12:02)
[2019-01-02] MEDS ORDERED: ALUM/MAG/SIMETH/LIDO VISC 1:1 30 ML BOTTLE PO ONE (13:30)
== END 2019-01-02 14:55 | disposition home or self-care (01) | DRG 280 ==
LOC: EDUNIT# → EDBD → N.EDINP 00:46 → N.TELES 00:46 → N.ED 00:46 → SUATTDRO 03:38 → N.TELES 04:24 → N.TELEN 12-31 07:49
PROVIDERS: ADMIT Internal Medicine; ATTEND Internal Medicine

== ENCOUNTER 2019-01-09 19:33 | Inpatient (IN) ==
[2019-01-09 21:37] LABS: Basophils % 0.3 % (0.0-0.8); Eosinophils # 0.1 10*3/uL (0.0-0.87); Eosinophils % 1.2 % (0.00-10.9); Hemoglobin 7.6 GM/DL (14.0-18.0); Immature Granulocytes % 0.6 %; Immature Granulocytes Absolute 0.06 #; Lymphocytes # 0.9 10*3/uL (1.4-4.0); Lymphocytes % 9.5 % (21.2-54.2); Mean Corpuscular HGB Conc 30.4 GM/DL (32-36); Mean Corpuscular Volume 86.5 FL (87-102); Mean Platelet Volume 11.3 FL (9.6-12.0); Monocytes % 9.9 % (1.7-12.7); Neutrophils % 78.5 % (38.7-73.9); Platelet Count 209 T/CUMM (130-400); Red Blood Count 2.89 MC/CUMM (3.8-5.5); Red Cell Distribution Width 15.2 % (9.3-17.3); White Blood Count 9.5 T/CUMM (4-12)
[2019-01-09 22:07] LABS: Alanine Aminotransferase 42 U/L (16-61); Albumin 2.6 G/DL (3.4-5.0); Alkaline Phosphatase 105 U/L (45-117); Aspartate Amino Transferase 58 U/L (0-37); Bilirubin,Total < 0.39 MG/DL (0.2-1.0); Blood Urea Nitrogen 59 MG/DL (7-18); CKMB % 15.6 %; Glucose 122 MG/DL (74-106); Osmolality,Calculated 296.4 MOS/KG (273-304); Total Protein 6.9 G/DL (6.4-8.3)
[2019-01-09] MEDS ORDERED: ONDANSETRON 4 MG/2 ML VIAL IV ONE (22:28)
[2019-01-09] MEDS ORDERED: NITROGLYCERIN SL 0.4 MG TABLET SL STA (22:28)
[2019-01-09] MEDS ORDERED: MORPHINE 4 MG/1 ML VIAL IV STA (22:28)
[2019-01-09] MEDS ORDERED: ENOXAPARIN 100 MG/ML SYRINGE SUBCUT STA (23:09)
[2019-01-09] MEDS ORDERED: CLOPIDOGREL 300 MG TABLET PO STA (23:10)
[2019-01-09] MEDS: NITROGLYCERIN DRIP 50 MG/250 ML BOTTLE IV PRN (23:38)
[2019-01-10] MEDS ORDERED: PROMETHAZINE 25 MG/1 ML VIAL IM PRN (00:03)
[2019-01-10] MEDS ORDERED: ONDANSETRON 4 MG/2 ML VIAL IV PRN (00:03)
[2019-01-10] MEDS ORDERED: ACETAMINOPHEN 325 MG TABLET PO PRN (00:03)
[2019-01-10] MEDS ORDERED: guaiFENesin/DM ER 600-30 MG TABLET PO PRN (00:03)
[2019-01-10] MEDS ORDERED: NICOTINE 21 MG/24 HR PATCH TRANSDERM PRN (00:03)
[2019-01-10] MEDS ORDERED: BISACODYL 5 MG TABLET PO PRN (00:03)
[2019-01-10] MEDS ORDERED: diphenhydrAMINE CAP 25 MG CAPSULE PO PRN (00:03)
[2019-01-10] MEDS ORDERED: ZALEPLON 5 MG CAPSULE PO PRN (00:03)
[2019-01-10] MEDS ORDERED: MORPHINE 4 MG/1 ML VIAL IV PRN (00:03)
[2019-01-10 01:14] LABS: Risk Ratio 2.75; Thyroid Stimulating Hormone 0.475 uIU/ml (0.358-3.74); VLDL CHOLESTEROL 10.6 MG/DL
[2019-01-10 06:19] LABS: Basophils % 0.3 % (0.0-0.8); Eosinophils # 0.2 10*3/uL (0.0-0.87); Eosinophils % 2.1 % (0.00-10.9); Hematocrit 23.9 VOL% (42.0-52.0); Hemoglobin 7.4 GM/DL (14.0-18.0); Immature Granulocytes % 0.3 %; Immature Granulocytes Absolute 0.03 #; Lymphocytes # 0.8 10*3/uL (1.4-4.0); Lymphocytes % 9.3 % (21.2-54.2); Mean Corpuscular Volume 85.1 FL (87-102); Mean Platelet Volume 12.3 FL (9.6-12.0); Monocytes % 10.8 % (1.7-12.7); Neutrophils % 77.2 % (38.7-73.9); Platelet Count 214 T/CUMM (130-400); Red Blood Count 2.81 MC/CUMM (3.8-5.5); Red Cell Distribution Width 15.1 % (9.3-17.3); White Blood Count 8.7 T/CUMM (4-12)
[2019-01-10 06:27] LABS: Apearance,Urine CLEAR (Clear); Bacteria,Urine Occasional /HPF (Few); Bilirubin,Urine Negative (Negative); Blood, Urine Small mg/dL (Negative); Glucose,Urine (UA) Negative (Negative); Hyaline Casts,Urine 1 /LPF (0-3); Ketones,Urine Negative (Negative); Nitrite,Urine Negative (Negative); Protein,Urine 100 MG/DL; RBC,Urine 2 /HPF (0-4); Squamous Epithelial Cell,Urine Occasional /HPF (0-10); Urine Color Straw (Yellow); Urine Urobilinogen < 2.0 EU/DL (0.2-1.0); WBC,Urine 1 /HPF (0-6)
[2019-01-10 06:43] LABS: Alanine Aminotransferase 38 U/L (16-61); Albumin 2.4 G/DL (3.4-5.0); Alkaline Phosphatase 96 U/L (45-117); Aspartate Amino Transferase 72 U/L (0-37); Bilirubin,Total < 0.39 MG/DL (0.2-1.0); Blood Urea Nitrogen 51 MG/DL (7-18); Calcium 8.8 MG/DL (8.5-10.1); Glucose 105 MG/DL (74-106); Osmolality,Calculated 296.1 MOS/KG (273-304); Total Protein 6.6 G/DL (6.4-8.3)
[2019-01-10] MEDS ORDERED: SODIUM CHLORIDE 0.9% 1,000 ML IV PRN (07:30)
[2019-01-10] MEDS: PRAZOSIN 1 MG CAPSULE PO SCH ×2 (08:26→20:22)
[2019-01-10] MEDS: ASPIRIN 325 MG TABLET PO SCH (08:26)
[2019-01-10] MEDS: PANTOPRAZOLE 40 MG TABLET PO SCH (08:27)
[2019-01-10] MEDS: METOPROLOL SUCCINATE XL 100 MG TABLET PO SCH ×2 (08:27→20:22)
[2019-01-10] MEDS ORDERED: FUROSEMIDE 40 MG TABLET PO SCH (09:00)
[2019-01-10] MEDS ORDERED: ISOSORBIDE MONONITRATE 30 MG TABLET PO SCH (09:00)
[2019-01-10 09:46] LABS: % Iron Saturation 15.3 % (18-50)
[2019-01-10 09:56] LABS: Ferritin 125.1 ng/ml (26-388)
[2019-01-10 10:09] LABS: Folate 14.7 NG/ML (5.4-24.0); Vitamin B12 742 PG/ML (211-911)
[2019-01-10 11:46] LABS: Total Protein,Urine Random 180 MG/DL
[2019-01-10 11:50] LABS: Creatinine,Urine Random 57 MG/DL
[2019-01-10 12:33] LABS: Urea Nitrogen, Urine Random 462 MG/DL
[2019-01-10] MEDS: LABETALOL 100 MG/20 ML VIAL IV PRN ×2 (13:19→19:14)
[2019-01-10] MEDS ORDERED: MAGNESIUM SULF RIDER 2 GM in PREMIX 1 EACH IV PRN ×2 (13:51→13:52)
[2019-01-10] MEDS ORDERED: POTASSIUM CHLORIDE RIDER 10 MEQ in PREMIX 1 EACH IV PRN ×2 (13:51→13:52)
[2019-01-10 14:10] LABS: Basophils % 0.2 % (0.0-0.8); Eosinophils # 0.3 10*3/uL (0.0-0.87); Eosinophils % 3.2 % (0.00-10.9); Hematocrit 29.1 VOL% (42.0-52.0); Hemoglobin 8.8 GM/DL (14.0-18.0); Immature Granulocytes % 0.4 %; Immature Granulocytes Absolute 0.04 #; Lymphocytes # 0.8 10*3/uL (1.4-4.0); Lymphocytes % 8.4 % (21.2-54.2); Mean Corpuscular HGB Conc 30.2 GM/DL (32-36); Mean Corpuscular Volume 88.2 FL (87-102); Mean Platelet Volume 11.6 FL (9.6-12.0); Monocytes % 11.5 % (1.7-12.7); Neutrophils % 76.3 % (38.7-73.9); Platelet Count 198 T/CUMM (130-400); Red Cell Distribution Width 14.8 % (9.3-17.3); White Blood Count 9.2 T/CUMM (4-12)
[2019-01-10 15:13] LABS: Sedimentation Rate-Westergren 120 MM/HR (0-20)
[2019-01-10] MEDS: hydrALAZINE 20 MG/1 ML VIAL IV PRN ×2 (15:31→20:22)
[2019-01-10] MEDS: NITROGLYCERIN DRIP 50 MG/250 ML BOTTLE IV PRN ×3 (15:34→22:35)
[2019-01-10] MEDS ORDERED: MAGNESIUM CITRATE 300 ML BOTTLE PO ONE (16:00)
[2019-01-10] MEDS ORDERED: SODIUM CHLORIDE 0.45% 1,000 ML IV SCH (16:30)
[2019-01-10] MEDS: EZETIMIBE 10 MG TABLET PO SCH (20:21)
[2019-01-10] MEDS: ROSUVASTATIN 20 MG TABLET PO SCH (20:22)
[2019-01-10] MEDS ORDERED: ENOXAPARIN 100 MG/ML SYRINGE SUBCUT SCH (21:00)
[2019-01-11] MEDS: NITROGLYCERIN DRIP 50 MG/250 ML BOTTLE IV PRN ×3 (01:48→08:15)
[2019-01-11 04:47] LABS: Basophils % 0.3 % (0.0-0.8); Eosinophils # 0.2 10*3/uL (0.0-0.87); Eosinophils % 2.2 % (0.00-10.9); Hematocrit 27.9 VOL% (42.0-52.0); Hemoglobin 8.5 GM/DL (14.0-18.0); Immature Granulocytes % 0.5 %; Immature Granulocytes Absolute 0.05 #; Lymphocytes # 0.6 10*3/uL (1.4-4.0); Lymphocytes % 6.2 % (21.2-54.2); Mean Corpuscular HGB Conc 30.5 GM/DL (32-36); Mean Corpuscular Volume 86.6 FL (87-102); Mean Platelet Volume 12.3 FL (9.6-12.0); Monocytes % 9.5 % (1.7-12.7); Neutrophils % 81.3 % (38.7-73.9); Platelet Count 210 T/CUMM (130-400); Red Blood Count 3.22 MC/CUMM (3.8-5.5); Red Cell Distribution Width 14.9 % (9.3-17.3); White Blood Count 10.1 T/CUMM (4-12)
[2019-01-11 05:16] LABS: Calcium 8.4 MG/DL (8.5-10.1); Osmolality,Calculated 288.5 MOS/KG (273-304)
[2019-01-11] MEDS: LABETALOL 100 MG/20 ML VIAL IV PRN (06:12)
[2019-01-11] MEDS ORDERED: diphenhydrAMINE CAP 25 MG CAPSULE PO ONE (08:00)
[2019-01-11] MEDS ORDERED: DIAZEPAM 5 MG TABLET PO ONE (08:00)
[2019-01-11] MEDS: ASPIRIN 325 MG TABLET PO SCH (08:13)
[2019-01-11] MEDS ORDERED: LIDOCAINE 1% 20 ML VIAL ONE (08:33)
[2019-01-11] MEDS ORDERED: HYDROmorphone 2 MG/1 ML VIAL ONE (08:34)
[2019-01-11] MEDS ORDERED: MIDAZOLAM 2 MG/2 ML VIAL ONE (08:34)
[2019-01-11] MEDS ORDERED: ENOXAPARIN 60 MG/0.6 ML SYRINGE ONE (09:07)
[2019-01-11] MEDS ORDERED: ENOXAPARIN 30 MG/0.3 ML SYRINGE ONE (09:07)
[2019-01-11] MEDS ORDERED: TICAGRELOR 90 MG TABLET ONE (09:53)
[2019-01-11] MEDS: SODIUM CHLORIDE 0.45% 1,000 ML IV SCH ×2 (10:43→23:04)
[2019-01-11 10:57] LABS: Hemoglobin A1 (Alkaline) 97.3 % (96.5-98.5); Hemoglobin A2 (Alkaline) 2.7 % (1.5-3.5)
[2019-01-11 11:33] LABS: CKMB % 8.6 %
[2019-01-11 11:35] LABS: Troponin I 10.6 NG/ML (0.00-0.045)
[2019-01-11] MEDS: PANTOPRAZOLE 40 MG TABLET PO SCH (12:30)
[2019-01-11] MEDS: PRAZOSIN 1 MG CAPSULE PO SCH ×2 (12:30→21:25)
[2019-01-11] MEDS: miSOPROStol 200 MCG TABLET PO SCH ×3 (12:31→21:25)
[2019-01-11] MEDS: METOPROLOL SUCCINATE XL 100 MG TABLET PO SCH ×2 (12:31→21:25)
[2019-01-11] MEDS: TICAGRELOR 90 MG TABLET PO SCH (21:25)
[2019-01-11] MEDS: EZETIMIBE 10 MG TABLET PO SCH (21:25)
[2019-01-11] MEDS: ROSUVASTATIN 20 MG TABLET PO SCH (21:25)
[2019-01-12] MEDS: hydrALAZINE 20 MG/1 ML VIAL IV PRN (00:07)
[2019-01-12 04:34] LABS: Basophils % 0.4 % (0.0-0.8); Eosinophils # 0.2 10*3/uL (0.0-0.87); Eosinophils % 2.2 % (0.00-10.9); Hematocrit 29.5 VOL% (42.0-52.0); Hemoglobin 9.2 GM/DL (14.0-18.0); Immature Granulocytes % 0.3 %; Immature Granulocytes Absolute 0.03 #; Lymphocytes # 0.6 10*3/uL (1.4-4.0); Mean Corpuscular HGB Conc 31.2 GM/DL (32-36); Mean Corpuscular Volume 86.5 FL (87-102); Mean Platelet Volume 12.4 FL (9.6-12.0); Monocytes % 10.3 % (1.7-12.7); Neutrophils % 80.8 % (38.7-73.9); Platelet Count 208 T/CUMM (130-400); Red Blood Count 3.41 MC/CUMM (3.8-5.5); Red Cell Distribution Width 15.3 % (9.3-17.3); White Blood Count 10.1 T/CUMM (4-12)
[2019-01-12 05:01] LABS: Calcium 8.6 MG/DL (8.5-10.1)
[2019-01-12 05:09] LABS: CKMB % 6.3 %; Calcium 9.1 MG/DL (8.5-10.1); Osmolality,Calculated 288.4 MOS/KG (273-304)
[2019-01-12 05:11] LABS: Troponin I 12.9 NG/ML (0.00-0.045)
[2019-01-12] MEDS: SODIUM CHLORIDE 0.45% 1,000 ML IV SCH ×2 (06:15→16:13)
[2019-01-12] MEDS: miSOPROStol 200 MCG TABLET PO SCH ×3 (09:00→17:30)
[2019-01-12] MEDS: PRAZOSIN 1 MG CAPSULE PO SCH ×2 (12:00→20:38)
[2019-01-12] MEDS: TICAGRELOR 90 MG TABLET PO SCH ×2 (12:00→20:38)
[2019-01-12] MEDS: CARVEDILOL 6.25 MG TABLET PO SCH ×2 (12:00→20:39)
[2019-01-12] MEDS: ASPIRIN CHEW 81 MG TABLET PO SCH (12:00)
[2019-01-12] MEDS: NICOTINE 7 MG/24 HR PATCH TRANSDERM SCH (12:44)
[2019-01-12] MEDS: PANTOPRAZOLE 40 MG TABLET PO SCH (12:45)
[2019-01-12] MEDS: ROSUVASTATIN 20 MG TABLET PO SCH (20:37)
[2019-01-12] MEDS: EZETIMIBE 10 MG TABLET PO SCH (20:38)
[2019-01-13 03:18] LABS: Basophils % 0.3 % (0.0-0.8); Eosinophils # 0.3 10*3/uL (0.0-0.87); Eosinophils % 3.2 % (0.00-10.9); Hematocrit 29.8 VOL% (42.0-52.0); Immature Granulocytes % 0.5 %; Immature Granulocytes Absolute 0.05 #; Lymphocytes # 0.8 10*3/uL (1.4-4.0); Lymphocytes % 7.6 % (21.2-54.2); Mean Corpuscular HGB Conc 30.2 GM/DL (32-36); Mean Corpuscular Volume 87.9 FL (87-102); Mean Platelet Volume 11.6 FL (9.6-12.0); Monocytes % 9.9 % (1.7-12.7); Neutrophils % 78.5 % (38.7-73.9); Platelet Count 218 T/CUMM (130-400); Red Blood Count 3.39 MC/CUMM (3.8-5.5); Red Cell Distribution Width 15.4 % (9.3-17.3); White Blood Count 10.1 T/CUMM (4-12)
[2019-01-13 03:32] LABS: Calcium 9.2 MG/DL (8.5-10.1); Osmolality,Calculated 294.1 MOS/KG (273-304)
[2019-01-13 03:37] LABS: Troponin I 9.83 NG/ML (0.00-0.045)
[2019-01-13] MEDS: SODIUM CHLORIDE 0.45% 1,000 ML IV SCH (04:54)
[2019-01-13] MEDS: PRAZOSIN 1 MG CAPSULE PO SCH ×2 (09:20→21:49)
[2019-01-13] MEDS: ASPIRIN CHEW 81 MG TABLET PO SCH (09:21)
[2019-01-13] MEDS: PANTOPRAZOLE 40 MG TABLET PO SCH (09:21)
[2019-01-13] MEDS: CARVEDILOL 6.25 MG TABLET PO SCH ×2 (09:21→21:49)
[2019-01-13] MEDS: TICAGRELOR 90 MG TABLET PO SCH ×2 (09:21→21:48)
[2019-01-13] MEDS: NICOTINE 7 MG/24 HR PATCH TRANSDERM SCH (09:22)
[2019-01-13] MEDS: POLYETHYLENE GLYCOL POWDER 17 GM PACK PO SCH (13:44)
[2019-01-13] MEDS: ROSUVASTATIN 20 MG TABLET PO SCH (21:48)
[2019-01-13] MEDS: EZETIMIBE 10 MG TABLET PO SCH (21:48)
[2019-01-14 06:33] LABS: Basophils % 0.3 % (0.0-0.8); Eosinophils # 0.4 10*3/uL (0.0-0.87); Eosinophils % 4.6 % (0.00-10.9); Hematocrit 29.5 VOL% (42.0-52.0); Hemoglobin 8.8 GM/DL (14.0-18.0); Immature Granulocytes % 1.1 %; Immature Granulocytes Absolute 0.11 #; Lymphocytes # 0.6 10*3/uL (1.4-4.0); Mean Corpuscular HGB Conc 29.8 GM/DL (32-36); Mean Corpuscular Volume 88.6 FL (87-102); Mean Platelet Volume 11.1 FL (9.6-12.0); Platelet Count 212 T/CUMM (130-400); Red Blood Count 3.33 MC/CUMM (3.8-5.5); Red Cell Distribution Width 15.2 % (9.3-17.3); White Blood Count 9.6 T/CUMM (4-12)
[2019-01-14 07:01] LABS: Calcium 8.8 MG/DL (8.5-10.1)
[2019-01-14 07:53] VITALS: BP 152/55
[2019-01-14] MEDS: TICAGRELOR 90 MG TABLET PO SCH (09:40)
[2019-01-14] MEDS: ASPIRIN CHEW 81 MG TABLET PO SCH (09:40)
[2019-01-14] MEDS: NICOTINE 7 MG/24 HR PATCH TRANSDERM SCH ×2 (09:40→09:44)
[2019-01-14] MEDS: POLYETHYLENE GLYCOL POWDER 17 GM PACK PO SCH (09:41)
[2019-01-14] MEDS: CARVEDILOL 6.25 MG TABLET PO SCH (09:41)
[2019-01-14] MEDS: PANTOPRAZOLE 40 MG TABLET PO SCH (09:41)
[2019-01-14] MEDS: PRAZOSIN 1 MG CAPSULE PO SCH (09:48)
== END 2019-01-14 12:15 | disposition home or self-care (01) | DRG 247 ==
LOC: N.ED 19:33 → N.EDINP 01-10 00:04 → SUATTDRO 01-10 00:04 → N.ICU 01-10 01:41 → N.TELES 01-12 16:53
PROVIDERS: ADMIT Internal Medicine; ATTEND Internal Medicine

== ENCOUNTER 2020-03-30 15:54 | Inpatient (IN) ==
[2020-03-30] MEDS ORDERED: FUROSEMIDE 40 MG/4 ML VIAL IV STA (16:54)
[2020-03-30 18:02] LABS: Basophils % 0.2 % (0.0-0.8); Eosinophils # 0.1 10*3/uL (0.0-0.87); Eosinophils % 0.5 % (0.00-10.9); Hematocrit 22.1 VOL% (42.0-52.0); Hemoglobin 6.8 GM/DL (14.0-18.0); Immature Granulocytes % 0.6 %; Immature Granulocytes Absolute 0.07 #; Lymphocytes # 0.5 10*3/uL (1.4-4.0); Lymphocytes % 4.6 % (21.2-54.2); Mean Corpuscular HGB Conc 30.8 GM/DL (32-36); Monocytes % 9.3 % (1.7-12.7); Neutrophils % 84.8 % (38.7-73.9); Platelet Count 162 T/CUMM (130-400); Red Blood Count 2.54 MC/CUMM (3.8-5.5); Red Cell Distribution Width 18.3 % (9.3-17.3)
[2020-03-30 18:18] LABS: PT Patient Result 10.5 SECS (9.8-11.9)
[2020-03-30 18:20] LABS: Albumin 2.1 G/DL (3.4-5.0); Bilirubin,Total 0.4 MG/DL (0.2-1.0); Calcium 8.7 MG/DL (8.5-10.1); Osmolality,Calculated 308.4 MOS/KG (273-304); Total Protein 5.6 G/DL (6.4-8.3)
[2020-03-30 19:14] LABS: Lymphocytes 3 % (20-55); Macrocytosis 1+; Polychromasia Few; Segmented Neutrophils 94 % (50-85); Sickle Cells 1+; Total Cells Counted 100
[2020-03-30 19:15] LABS: Platelet Estimate Adequate
[2020-03-30] MEDS ORDERED: GLUCAGON 1 MG VIAL IM PRN (19:54)
[2020-03-30] MEDS ORDERED: DEXTROSE 50% 25 GM/50 ML VIAL IV PRN (19:54)
[2020-03-30] MEDS ORDERED: ACETAMINOPHEN 325 MG TABLET PO PRN (19:54)
[2020-03-30] MEDS ORDERED: ONDANSETRON 4 MG/2 ML VIAL IV PRN (19:54)
[2020-03-30] MEDS ORDERED: MAGNESIUM SULF RIDER 4 GM in PREMIX 1 EACH IV PRN (19:54)
[2020-03-30] MEDS ORDERED: MAGNESIUM SULF RIDER 2 GM in PREMIX 1 EACH IV PRN (19:54)
[2020-03-30] MEDS ORDERED: ALBUMIN 5% 12.5 GM in PREMIX 1 EACH IV ONE (20:10)
[2020-03-30] MEDS: FUROSEMIDE 40 MG/4 ML VIAL IV SCH (22:14)
[2020-03-31 01:38] LABS: Hematocrit 23.4 VOL% (42.0-52.0); Hemoglobin 7.3 GM/DL (14.0-18.0)
[2020-03-31 04:51] LABS: Basophils % 0.2 % (0.0-0.8); Eosinophils # 0.1 10*3/uL (0.0-0.87); Eosinophils % 1.1 % (0.00-10.9); Hemoglobin 6.8 GM/DL (14.0-18.0); Immature Granulocytes % 0.7 %; Immature Granulocytes Absolute 0.07 #; Lymphocytes # 0.7 10*3/uL (1.4-4.0); Lymphocytes % 6.7 % (21.2-54.2); Mean Corpuscular HGB Conc 30.9 GM/DL (32-36); Mean Corpuscular Volume 88.4 FL (87-102); Monocytes % 9.1 % (1.7-12.7); Neutrophils % 82.2 % (38.7-73.9); Platelet Count 141 T/CUMM (130-400); Red Blood Count 2.49 MC/CUMM (3.8-5.5); Red Cell Distribution Width 17.8 % (9.3-17.3); White Blood Count 10.1 T/CUMM (4-12)
[2020-03-31 05:08] LABS: Hypochromasia 1+
[2020-03-31 05:09] LABS: Acanthocytes Few; Microcytosis 1+
[2020-03-31 05:10] LABS: Burr Cells Slight; Ovalocytes Slight
[2020-03-31 05:11] LABS: Platelet Estimate Adequate
[2020-03-31 05:21] LABS: Calcium 9.3 MG/DL (8.5-10.1); Osmolality,Calculated 309.3 MOS/KG (273-304)
[2020-03-31] MEDS ORDERED: INFLUENZA VIRUS VACCINE 0.5 ML SYRINGE IM ONE (08:58)
[2020-03-31 09:22] LABS: % Iron Saturation 18.4 % (18-50); Ferritin 346.9 ng/ml (26-388)
[2020-03-31 11:01] LABS: Folate 9.2 NG/ML (5.4-24.0)
[2020-03-31] MEDS: FUROSEMIDE 40 MG/4 ML VIAL IV SCH ×2 (12:50→17:17)
[2020-03-31] MEDS ORDERED: metOLazone 5 MG TABLET PO PRN (12:51)
[2020-03-31] MEDS: PANTOPRAZOLE 40 MG TABLET PO SCH (12:51)
[2020-03-31] MEDS: ROSUVASTATIN 20 MG TABLET PO SCH (21:18)
[2020-03-31] MEDS: FERROUS GLUCONATE 324 MG TABLET PO SCH (21:19)
[2020-03-31] MEDS: carvediloL 12.5 MG TABLET PO SCH (21:19)
[2020-04-01 05:48] LABS: Calcium 9.1 MG/DL (8.5-10.1); Osmolality,Calculated 316.1 MOS/KG (273-304)
[2020-04-01 05:49] LABS: Uric Acid 9.5 MG/DL (3.5-7.2)
[2020-04-01 06:21] LABS: Parathyroid Hormone Intact 865.1 PG/ML (18.4-80.1)
[2020-04-01 07:49] LABS: Basophils % 0.3 % (0.0-0.8); Eosinophils # 0.1 10*3/uL (0.0-0.87); Eosinophils % 0.7 % (0.00-10.9); Hematocrit 27.1 VOL% (42.0-52.0); Immature Granulocytes % 0.7 %; Immature Granulocytes Absolute 0.07 #; Lymphocytes # 0.6 10*3/uL (1.4-4.0); Lymphocytes % 5.4 % (21.2-54.2); Mean Corpuscular HGB Conc 30.6 GM/DL (32-36); Mean Corpuscular Volume 87.1 FL (87-102); Mean Platelet Volume 13.3 FL (9.6-12.0); Monocytes % 9.8 % (1.7-12.7); Neutrophils % 83.1 % (38.7-73.9); Red Cell Distribution Width 17.6 % (9.3-17.3); White Blood Count 10.5 T/CUMM (4-12)
[2020-04-01 07:50] LABS: Hemoglobin 8.3 GM/DL (14.0-18.0); Red Blood Count 3.11 MC/CUMM (3.8-5.5)
[2020-04-01 07:51] LABS: Platelet Count 204 T/CUMM (130-400)
[2020-04-01 08:04] LABS: Hypochromasia 1+; Microcytosis 1+
[2020-04-01 08:05] LABS: Ovalocytes Slight; Platelet Estimate Adequate
[2020-04-01] MEDS: ASPIRIN EC 81 MG TABLET PO SCH (08:40)
[2020-04-01] MEDS: FERROUS GLUCONATE 324 MG TABLET PO SCH ×2 (08:40→21:01)
[2020-04-01] MEDS: PANTOPRAZOLE 40 MG TABLET PO SCH (08:40)
[2020-04-01] MEDS: FUROSEMIDE 40 MG/4 ML VIAL IV SCH ×3 (08:40→16:27)
[2020-04-01] MEDS: ISOSORBIDE MONONITRATE 30 MG TABLET PO SCH (08:40)
[2020-04-01] MEDS: carvediloL 12.5 MG TABLET PO SCH (08:40)
[2020-04-01] MEDS: PRAZOSIN 1 MG CAPSULE PO SCH ×2 (10:25→21:00)
[2020-04-01] MEDS: SEVELAMER CARBONATE 800 MG TABLET PO SCH (17:13)
[2020-04-01 17:17] LABS: Bacteria,Urine Occasional /HPF (Few); Bilirubin,Urine Negative (Negative); Blood, Urine Small mg/dL (Negative); Glucose,Urine (UA) Negative (Negative); Ketones,Urine Negative (Negative); Mucus,Urine Occasional /LPF (Occasional); Nitrite,Urine Negative (Negative); Protein,Urine >=500 MG/DL; RBC,Urine 5 /HPF (0-4); Urine Appearance Slightly Hazy (Clear); Urine Color Yellow (Yellow); Urine Urobilinogen < 2.0 EU/DL (0.2-1.0); WBC,Urine 2 /HPF (0-6)
[2020-04-01] MEDS: ROSUVASTATIN 20 MG TABLET PO SCH (21:00)
[2020-04-01] MEDS: SODIUM BICARBONATE 650 MG TABLET PO SCH (21:00)
[2020-04-01] MEDS: CHOLECALCIFEROL 400 UNIT TABLET PO SCH (21:00)
[2020-04-01] MEDS: carvediloL 25 MG TABLET PO SCH (21:01)
[2020-04-02 05:45] LABS: Basophils % 0.3 % (0.0-0.8); Eosinophils # 0.3 10*3/uL (0.0-0.87); Eosinophils % 3.9 % (0.00-10.9); Hematocrit 24.9 VOL% (42.0-52.0); Hemoglobin 7.8 GM/DL (14.0-18.0); Immature Granulocytes % 0.8 %; Immature Granulocytes Absolute 0.06 #; Lymphocytes # 0.8 10*3/uL (1.4-4.0); Mean Corpuscular HGB Conc 31.3 GM/DL (32-36); Mean Corpuscular Volume 86.2 FL (87-102); Mean Platelet Volume 13.2 FL (9.6-12.0); Monocytes % 10.1 % (1.7-12.7); Neutrophils % 74.9 % (38.7-73.9); Platelet Count 208 T/CUMM (130-400); Red Blood Count 2.89 MC/CUMM (3.8-5.5); Red Cell Distribution Width 17.2 % (9.3-17.3); White Blood Count 7.7 T/CUMM (4-12)
[2020-04-02 06:08] LABS: Calcium 9.5 MG/DL (8.5-10.1); Osmolality,Calculated 304.8 MOS/KG (273-304)
[2020-04-02 06:09] LABS: Hypochromasia 2+; Microcytosis 1+; Platelet Estimate Adequate
[2020-04-02] MEDS: FUROSEMIDE 40 MG/4 ML VIAL IV SCH ×2 (09:53→15:33)
[2020-04-02] MEDS: SEVELAMER CARBONATE 800 MG TABLET PO SCH ×3 (09:54→17:05)
[2020-04-02] MEDS: carvediloL 25 MG TABLET PO SCH ×2 (09:55→21:00)
[2020-04-02] MEDS: ASPIRIN EC 81 MG TABLET PO SCH (09:55)
[2020-04-02] MEDS: PRAZOSIN 1 MG CAPSULE PO SCH ×2 (09:56→20:59)
[2020-04-02] MEDS: ISOSORBIDE MONONITRATE 30 MG TABLET PO SCH (09:56)
[2020-04-02] MEDS: PANTOPRAZOLE 40 MG TABLET PO SCH (09:56)
[2020-04-02] MEDS: SODIUM BICARBONATE 650 MG TABLET PO SCH ×3 (09:56→21:01)
[2020-04-02] MEDS: CHOLECALCIFEROL 400 UNIT TABLET PO SCH ×2 (09:56→21:00)
[2020-04-02] MEDS: MULTIVITAMIN (BEROCCA) TABLET PO SCH (09:58)
[2020-04-02] MEDS: FERROUS GLUCONATE 324 MG TABLET PO SCH ×2 (09:58→21:00)
[2020-04-02] MEDS: ROSUVASTATIN 20 MG TABLET PO SCH (21:00)
[2020-04-03 04:19] LABS: Allen Test Positive; Pt O2 Delivery Device Room Air
[2020-04-03 05:58] LABS: Basophils % 0.5 % (0.0-0.8); Eosinophils # 0.4 10*3/uL (0.0-0.87); Hematocrit 22.4 VOL% (42.0-52.0); Hemoglobin 7.1 GM/DL (14.0-18.0); Immature Granulocytes % 0.8 %; Immature Granulocytes Absolute 0.05 #; Lymphocytes # 0.7 10*3/uL (1.4-4.0); Lymphocytes % 11.4 % (21.2-54.2); Mean Corpuscular HGB Conc 31.7 GM/DL (32-36); Mean Corpuscular Volume 85.2 FL (87-102); Mean Platelet Volume 12.9 FL (9.6-12.0); Monocytes % 13.3 % (1.7-12.7); Platelet Count 254 T/CUMM (130-400); Red Blood Count 2.63 MC/CUMM (3.8-5.5); Red Cell Distribution Width 17.2 % (9.3-17.3); White Blood Count 6.5 T/CUMM (4-12)
[2020-04-03 06:15] LABS: Calcium 8.9 MG/DL (8.5-10.1); Osmolality,Calculated 317.1 MOS/KG (273-304)
[2020-04-03 06:30] LABS: ABG Base Excess -14.1 MMOL/L (-2.5-2.5); ABG HCO3 7.3 MMOL/L (20-26); ABG PH 7.387 (7.35-7.45); ABG PO2 153.1 MM HG (80-95); ABG TCO2 7.7 MMOL/L (23-27)
[2020-04-03 06:32] LABS: ABG PCO2 12.5 MM HG (35-48)
[2020-04-03] MEDS: CHOLECALCIFEROL 400 UNIT TABLET PO SCH ×2 (09:57→21:01)
[2020-04-03] MEDS: SEVELAMER CARBONATE 800 MG TABLET PO SCH ×3 (09:57→18:17)
[2020-04-03] MEDS: PRAZOSIN 1 MG CAPSULE PO SCH ×2 (09:57→21:01)
[2020-04-03] MEDS: carvediloL 25 MG TABLET PO SCH ×2 (09:57→21:01)
[2020-04-03] MEDS: MULTIVITAMIN (BEROCCA) TABLET PO SCH (09:57)
[2020-04-03] MEDS: SODIUM BICARBONATE 650 MG TABLET PO SCH ×3 (09:57→21:00)
[2020-04-03] MEDS: PANTOPRAZOLE 40 MG TABLET PO SCH (09:57)
[2020-04-03] MEDS: FERROUS GLUCONATE 324 MG TABLET PO SCH ×2 (09:58→21:01)
[2020-04-03] MEDS: ISOSORBIDE MONONITRATE 30 MG TABLET PO SCH (09:58)
[2020-04-03] MEDS: ASPIRIN EC 81 MG TABLET PO SCH (09:58)
[2020-04-03] MEDS: FUROSEMIDE 40 MG/4 ML VIAL IV SCH ×2 (10:00→16:21)
[2020-04-03] MEDS ORDERED: DARBEPOETIN ALFA 100 MCG/ML VIAL SUBCUT ONE (14:47)
[2020-04-03] MEDS: ROSUVASTATIN 20 MG TABLET PO SCH (21:00)
[2020-04-04 03:15] LABS: Allen Test Positive
[2020-04-04 03:16] LABS: ABG Base Excess -3.4 MMOL/L (-2.5-2.5); ABG HCO3 21.4 MMOL/L (20-26); ABG Oxygen Saturation 90.8 % (95-100); ABG PCO2 41.4 MM HG (35-48); ABG PH 7.335 (7.35-7.45); ABG PO2 61.9 MM HG (80-95); ABG TCO2 21.1 MMOL/L (23-27)
[2020-04-04 05:51] LABS: Basophils % 0.3 % (0.0-0.8); Eosinophils # 0.4 10*3/uL (0.0-0.87); Hematocrit 22.8 VOL% (42.0-52.0); Hemoglobin 7.1 GM/DL (14.0-18.0); Immature Granulocytes % 0.5 %; Immature Granulocytes Absolute 0.03 #; Lymphocytes # 0.7 10*3/uL (1.4-4.0); Lymphocytes % 9.9 % (21.2-54.2); Mean Corpuscular HGB Conc 31.1 GM/DL (32-36); Neutrophils % 72.3 % (38.7-73.9); Platelet Count 254 T/CUMM (130-400); Red Blood Count 2.62 MC/CUMM (3.8-5.5); Red Cell Distribution Width 17.2 % (9.3-17.3); White Blood Count 6.7 T/CUMM (4-12)
[2020-04-04 06:22] LABS: Calcium 9.1 MG/DL (8.5-10.1); Osmolality,Calculated 314.3 MOS/KG (273-304)
[2020-04-04 09:03] LABS: Protein/Creatinine Ratio,Urine 5.1 RATIO
[2020-04-04 09:07] LABS: Immunoglobulin A 162 MG/DL (70-400); Immunoglobulin G 910 MG/DL (700-1600); Total Protein 6.5 G/DL (6.4-8.3)
[2020-04-04] MEDS: SODIUM BICARBONATE 650 MG TABLET PO SCH ×3 (09:22→21:19)
[2020-04-04] MEDS: PRAZOSIN 1 MG CAPSULE PO SCH ×2 (09:22→21:20)
[2020-04-04] MEDS: MULTIVITAMIN (BEROCCA) TABLET PO SCH (09:22)
[2020-04-04] MEDS: SEVELAMER CARBONATE 800 MG TABLET PO SCH ×3 (09:22→17:29)
[2020-04-04] MEDS: PANTOPRAZOLE 40 MG TABLET PO SCH (09:23)
[2020-04-04] MEDS: ASPIRIN EC 81 MG TABLET PO SCH (09:23)
[2020-04-04] MEDS: lisinopriL 20 MG TABLET PO SCH (09:23)
[2020-04-04] MEDS: ISOSORBIDE MONONITRATE 30 MG TABLET PO SCH (09:23)
[2020-04-04] MEDS: CHOLECALCIFEROL 400 UNIT TABLET PO SCH ×2 (09:23→21:19)
[2020-04-04] MEDS: carvediloL 25 MG TABLET PO SCH ×2 (09:23→21:20)
[2020-04-04 09:24] LABS: Immunoglobulin M < 21 MG/DL (40-230)
[2020-04-04] MEDS: FERROUS GLUCONATE 324 MG TABLET PO SCH ×2 (09:25→21:20)
[2020-04-04] MEDS: FUROSEMIDE 40 MG/4 ML VIAL IV SCH ×2 (09:28→15:35)
[2020-04-04] MEDS: ROSUVASTATIN 20 MG TABLET PO SCH (21:19)
[2020-04-05] MEDS: SEVELAMER CARBONATE 800 MG TABLET PO SCH ×3 (09:51→16:47)
[2020-04-05] MEDS: MULTIVITAMIN (BEROCCA) TABLET PO SCH (09:52)
[2020-04-05] MEDS: SODIUM BICARBONATE 650 MG TABLET PO SCH ×3 (09:52→21:14)
[2020-04-05] MEDS: PANTOPRAZOLE 40 MG TABLET PO SCH (09:52)
[2020-04-05] MEDS: CHOLECALCIFEROL 400 UNIT TABLET PO SCH ×2 (09:52→21:14)
[2020-04-05] MEDS: ISOSORBIDE MONONITRATE 30 MG TABLET PO SCH (09:53)
[2020-04-05] MEDS: FERROUS GLUCONATE 324 MG TABLET PO SCH ×2 (09:53→21:14)
[2020-04-05] MEDS: lisinopriL 20 MG TABLET PO SCH (09:53)
[2020-04-05] MEDS: ASPIRIN EC 81 MG TABLET PO SCH (09:53)
[2020-04-05] MEDS: PRAZOSIN 1 MG CAPSULE PO SCH ×2 (09:53→21:14)
[2020-04-05] MEDS: carvediloL 25 MG TABLET PO SCH ×2 (10:02→21:15)
[2020-04-05] MEDS: FUROSEMIDE 40 MG/4 ML VIAL IV SCH ×2 (11:12→16:36)
[2020-04-05 12:04] LABS: Total Protein 24 Hr Ur Result 4662 MG/24HR (0-149.1); Total Volume,Urine 1400 ML (400-2000)
[2020-04-05 12:25] LABS: Creatinine 12 Hr Ur Result 1.04 G/12HR (0.48-1.25)
[2020-04-05] MEDS: ROSUVASTATIN 20 MG TABLET PO SCH (21:14)
[2020-04-06 06:39] LABS: Calcium 9.1 MG/DL (8.5-10.1); Osmolality,Calculated 317.1 MOS/KG (273-304)
[2020-04-06 07:30] LABS: Immunoglobulin A (Chem) 162 MG/DL (70-400); Immunoglobulin G (Chem) 910 MG/DL (700-1600); Immunoglobulin M (Chem) < 21 MG/DL (40-230); Total Protein (Chem) 6.5 G/DL (6.4-8.3)
[2020-04-06] MEDS: lisinopriL 20 MG TABLET PO SCH (08:18)
[2020-04-06] MEDS: SEVELAMER CARBONATE 800 MG TABLET PO SCH ×3 (08:18→16:39)
[2020-04-06] MEDS: SODIUM BICARBONATE 650 MG TABLET PO SCH ×3 (08:18→20:45)
[2020-04-06] MEDS: MULTIVITAMIN (BEROCCA) TABLET PO SCH (08:18)
[2020-04-06] MEDS: PRAZOSIN 1 MG CAPSULE PO SCH ×2 (08:19→20:45)
[2020-04-06] MEDS: CHOLECALCIFEROL 400 UNIT TABLET PO SCH ×2 (08:19→20:46)
[2020-04-06] MEDS: PANTOPRAZOLE 40 MG TABLET PO SCH (08:19)
[2020-04-06] MEDS: FUROSEMIDE 40 MG/4 ML VIAL IV SCH ×2 (08:20→15:17)
[2020-04-06] MEDS: ASPIRIN EC 81 MG TABLET PO SCH (08:20)
[2020-04-06] MEDS: ISOSORBIDE MONONITRATE 30 MG TABLET PO SCH (08:20)
[2020-04-06] MEDS: FERROUS GLUCONATE 324 MG TABLET PO SCH ×2 (08:20→20:46)
[2020-04-06] MEDS: carvediloL 25 MG TABLET PO SCH ×2 (08:20→20:46)
[2020-04-06 09:55] LABS: Albumin (SPE) 3.3 G/DL (3.2-5.3); Albumin (SPE) Rel % 50.9 %; Alpha 1 (SPE) 0.4 G/DL (0.1-0.4); Alpha 1 (SPE) Rel % 5.6 %; Alpha 2 (SPE) Rel % 15.4 %; Beta (SPE) Rel % 15.6 %; Gamma (SPE) 0.8 G/DL (0.7-1.7); Gamma (SPE) Rel % 12.5 %
[2020-04-06] MEDS: ROSUVASTATIN 20 MG TABLET PO SCH (20:46)
[2020-04-07 05:59] LABS: Basophils % 0.3 % (0.0-0.8); Eosinophils # 0.3 10*3/uL (0.0-0.87); Eosinophils % 3.8 % (0.00-10.9); Hematocrit 22.1 VOL% (42.0-52.0); Hemoglobin 6.8 GM/DL (14.0-18.0); Immature Granulocytes % 0.5 %; Immature Granulocytes Absolute 0.04 #; Lymphocytes # 0.8 10*3/uL (1.4-4.0); Lymphocytes % 9.6 % (21.2-54.2); Mean Corpuscular HGB Conc 30.8 GM/DL (32-36); Mean Corpuscular Volume 86.3 FL (87-102); Monocytes % 8.9 % (1.7-12.7); Neutrophils % 76.9 % (38.7-73.9); Platelet Count 265 T/CUMM (130-400); Red Blood Count 2.56 MC/CUMM (3.8-5.5)
[2020-04-07 06:08] LABS: Calcium 9.1 MG/DL (8.5-10.1); Osmolality,Calculated 315.3 MOS/KG (273-304)
[2020-04-07] MEDS: SODIUM BICARBONATE 650 MG TABLET PO SCH ×3 (08:48→20:58)
[2020-04-07] MEDS: SEVELAMER CARBONATE 800 MG TABLET PO SCH ×3 (08:48→16:59)
[2020-04-07] MEDS: lisinopriL 20 MG TABLET PO SCH (08:49)
[2020-04-07] MEDS: ASPIRIN EC 81 MG TABLET PO SCH (08:49)
[2020-04-07] MEDS: PRAZOSIN 1 MG CAPSULE PO SCH ×2 (08:49→20:59)
[2020-04-07] MEDS: FERROUS GLUCONATE 324 MG TABLET PO SCH ×2 (08:49→20:59)
[2020-04-07] MEDS: PANTOPRAZOLE 40 MG TABLET PO SCH (08:49)
[2020-04-07] MEDS: MULTIVITAMIN (BEROCCA) TABLET PO SCH (08:49)
[2020-04-07] MEDS: ISOSORBIDE MONONITRATE 30 MG TABLET PO SCH (08:49)
[2020-04-07] MEDS: CHOLECALCIFEROL 400 UNIT TABLET PO SCH ×2 (08:49→20:59)
[2020-04-07] MEDS: FUROSEMIDE 40 MG/4 ML VIAL IV SCH ×2 (08:50→15:36)
[2020-04-07] MEDS: carvediloL 25 MG TABLET PO SCH ×2 (09:01→20:59)
[2020-04-07] MEDS: ROSUVASTATIN 20 MG TABLET PO SCH (20:59)
[2020-04-08 06:33] LABS: Hepatitis B Surface Ab Result Positive; Hepatitis B Surface Ag Quant < 0.10 Index; Hepatitis B Surface Ag Result Negative (Negative); Hepatitis C Virus Ab Quant 0.02 Index; Hepatitis C Virus Ab Result Negative (Negative)
[2020-04-08] MEDS: SODIUM BICARBONATE 650 MG TABLET PO SCH ×3 (09:56→21:10)
[2020-04-08] MEDS: PRAZOSIN 1 MG CAPSULE PO SCH ×2 (09:57→21:11)
[2020-04-08] MEDS: SEVELAMER CARBONATE 800 MG TABLET PO SCH ×4 (09:57→21:10)
[2020-04-08] MEDS: PANTOPRAZOLE 40 MG TABLET PO SCH (09:57)
[2020-04-08] MEDS: CHOLECALCIFEROL 400 UNIT TABLET PO SCH ×2 (09:57→21:11)
[2020-04-08] MEDS: carvediloL 25 MG TABLET PO SCH ×2 (09:58→21:11)
[2020-04-08] MEDS: ASPIRIN EC 81 MG TABLET PO SCH (09:58)
[2020-04-08] MEDS: ISOSORBIDE MONONITRATE 30 MG TABLET PO SCH (09:58)
[2020-04-08] MEDS: FUROSEMIDE 40 MG/4 ML VIAL IV SCH ×2 (09:59→16:12)
[2020-04-08] MEDS: FERROUS GLUCONATE 324 MG TABLET PO SCH ×2 (09:59→21:11)
[2020-04-08] MEDS: lisinopriL 20 MG TABLET PO SCH (09:59)
[2020-04-08] MEDS: MULTIVITAMIN (BEROCCA) TABLET PO SCH (09:59)
[2020-04-08 12:17] LABS: Immuno Free Light Chain Kappa 13.16 MG/DL (0.33-1.94); Immuno Free Light Chain Lambda 5.65 MG/DL (0.57-2.63); Immuno Free Light Chain Ratio 2.33 MG/DL (0.26-1.65)
[2020-04-08] MEDS: ROSUVASTATIN 20 MG TABLET PO SCH (21:11)
[2020-04-09 06:27] LABS: Basophils % 0.2 % (0.0-0.8); Eosinophils # 0.3 10*3/uL (0.0-0.87); Eosinophils % 3.3 % (0.00-10.9); Hemoglobin 6.7 GM/DL (14.0-18.0); Immature Granulocytes % 0.5 %; Immature Granulocytes Absolute 0.04 #; Lymphocytes # 0.7 10*3/uL (1.4-4.0); Lymphocytes % 8.8 % (21.2-54.2); Mean Corpuscular HGB Conc 30.5 GM/DL (32-36); Mean Corpuscular Volume 87.6 FL (87-102); Neutrophils % 77.2 % (38.7-73.9); Platelet Count 288 T/CUMM (130-400); Red Blood Count 2.51 MC/CUMM (3.8-5.5); Red Cell Distribution Width 17.2 % (9.3-17.3); White Blood Count 8.1 T/CUMM (4-12)
[2020-04-09 06:43] LABS: Alanine Aminotransferase 11 U/L (16-61); Albumin 2.1 G/DL (3.4-5.0); Alkaline Phosphatase 70 U/L (45-117); Aspartate Amino Transferase 7 U/L (0-37); Bilirubin,Total < 0.39 MG/DL (0.2-1.0); Blood Urea Nitrogen 108 MG/DL (7-18); Calcium 8.7 MG/DL (8.5-10.1); Estimated Glom Filtration Rate 10 ML/MIN; Glucose 92 MG/DL (74-106); Osmolality,Calculated 316.1 MOS/KG (273-304); Total Protein 5.6 G/DL (6.4-8.3)
[2020-04-09] MEDS: PANTOPRAZOLE 40 MG TABLET PO SCH (09:31)
[2020-04-09] MEDS: FUROSEMIDE 40 MG/4 ML VIAL IV SCH ×2 (09:31→16:31)
[2020-04-09] MEDS: ISOSORBIDE MONONITRATE 30 MG TABLET PO SCH (09:31)
[2020-04-09] MEDS: carvediloL 25 MG TABLET PO SCH ×2 (09:31→23:39)
[2020-04-09] MEDS: lisinopriL 20 MG TABLET PO SCH (09:31)
[2020-04-09] MEDS: PRAZOSIN 1 MG CAPSULE PO SCH ×2 (09:31→22:58)
[2020-04-09] MEDS: ASPIRIN EC 81 MG TABLET PO SCH (09:31)
[2020-04-09] MEDS: MULTIVITAMIN (BEROCCA) TABLET PO SCH (09:44)
[2020-04-09] MEDS: CHOLECALCIFEROL 400 UNIT TABLET PO SCH ×2 (09:44→22:57)
[2020-04-09] MEDS: SEVELAMER CARBONATE 800 MG TABLET PO SCH ×4 (09:44→22:58)
[2020-04-09] MEDS: FERROUS GLUCONATE 324 MG TABLET PO SCH ×2 (09:44→22:59)
[2020-04-09] MEDS: SODIUM BICARBONATE 650 MG TABLET PO SCH ×3 (09:44→22:56)
[2020-04-09] MEDS ORDERED: LIDOCAINE 1%/EPI INJ 20 ML VIAL ONE (12:11)
[2020-04-09] MEDS ORDERED: BUPIVACAINE MPF 0.25% 30 ML VIAL ONE (12:11)
[2020-04-09] MEDS ORDERED: HEPARIN 5,000 UNIT/1 ML VIAL ONE (12:11)
[2020-04-09] MEDS ORDERED: ceFAZolin 1,000 MG VIAL ONE (12:55)
[2020-04-09] MEDS ORDERED: LIDOCAINE 2% 5 ML VIAL ONE (13:23)
[2020-04-09] MEDS ORDERED: KETAMINE 500 MG/10 ML VIAL ONE (13:24)
[2020-04-09] MEDS ORDERED: ETOMIDATE 40 MG/20 ML VIAL IV ONE (13:24)
[2020-04-09] MEDS ORDERED: MIDAZOLAM 2 MG/2 ML VIAL ONE (13:24)
[2020-04-09] MEDS ORDERED: fentaNYL 100 MCG/2 ML VIAL ONE (13:24)
[2020-04-09] MEDS: ROSUVASTATIN 20 MG TABLET PO SCH (22:58)
[2020-04-10 04:51] LABS: Basophils % 0.4 % (0.0-0.8); Eosinophils # 0.3 10*3/uL (0.0-0.87); Eosinophils % 3.6 % (0.00-10.9); Hematocrit 22.4 VOL% (42.0-52.0); Hemoglobin 6.8 GM/DL (14.0-18.0); Immature Granulocytes % 0.3 %; Immature Granulocytes Absolute 0.02 #; Lymphocytes # 0.5 10*3/uL (1.4-4.0); Lymphocytes % 6.7 % (21.2-54.2); Mean Corpuscular HGB Conc 30.4 GM/DL (32-36); Mean Corpuscular Volume 87.2 FL (87-102); Mean Platelet Volume 12.9 FL (9.6-12.0); Platelet Count 286 T/CUMM (130-400); Red Blood Count 2.57 MC/CUMM (3.8-5.5); Red Cell Distribution Width 17.2 % (9.3-17.3); White Blood Count 7.1 T/CUMM (4-12)
[2020-04-10 05:38] LABS: Calcium 9.3 MG/DL (8.5-10.1); Osmolality,Calculated 310.4 MOS/KG (273-304)
[2020-04-10] MEDS: CHOLECALCIFEROL 400 UNIT TABLET PO SCH ×2 (08:21→23:23)
[2020-04-10] MEDS: PRAZOSIN 1 MG CAPSULE PO SCH ×2 (08:21→21:50)
[2020-04-10] MEDS: SODIUM BICARBONATE 650 MG TABLET PO SCH ×3 (08:21→21:49)
[2020-04-10] MEDS: SEVELAMER CARBONATE 800 MG TABLET PO SCH ×4 (08:21→21:50)
[2020-04-10] MEDS: carvediloL 25 MG TABLET PO SCH ×2 (08:22→21:51)
[2020-04-10] MEDS: PANTOPRAZOLE 40 MG TABLET PO SCH (08:22)
[2020-04-10] MEDS: lisinopriL 20 MG TABLET PO SCH (08:22)
[2020-04-10] MEDS: ASPIRIN EC 81 MG TABLET PO SCH (08:22)
[2020-04-10] MEDS: FUROSEMIDE 40 MG/4 ML VIAL IV SCH ×2 (08:22→15:05)
[2020-04-10] MEDS: ISOSORBIDE MONONITRATE 30 MG TABLET PO SCH (08:22)
[2020-04-10] MEDS: MULTIVITAMIN (BEROCCA) TABLET PO SCH (09:18)
[2020-04-10] MEDS: FERROUS GLUCONATE 324 MG TABLET PO SCH ×2 (09:18→21:51)
[2020-04-10] MEDS: ROSUVASTATIN 20 MG TABLET PO SCH (23:23)
[2020-04-11] MEDS: SODIUM BICARBONATE 650 MG TABLET PO SCH (08:29)
[2020-04-11] MEDS: SEVELAMER CARBONATE 800 MG TABLET PO SCH (08:29)
[2020-04-11] MEDS: lisinopriL 20 MG TABLET PO SCH (08:29)
[2020-04-11] MEDS: CHOLECALCIFEROL 400 UNIT TABLET PO SCH (08:29)
[2020-04-11] MEDS: ISOSORBIDE MONONITRATE 30 MG TABLET PO SCH (08:30)
[2020-04-11] MEDS: FERROUS GLUCONATE 324 MG TABLET PO SCH (08:30)
[2020-04-11] MEDS: carvediloL 25 MG TABLET PO SCH (08:30)
[2020-04-11] MEDS: PRAZOSIN 1 MG CAPSULE PO SCH (08:30)
[2020-04-11] MEDS: MULTIVITAMIN (BEROCCA) TABLET PO SCH (08:30)
[2020-04-11] MEDS: PANTOPRAZOLE 40 MG TABLET PO SCH (08:30)
[2020-04-11] MEDS: FUROSEMIDE 40 MG/4 ML VIAL IV SCH (08:30)
[2020-04-11] MEDS: ASPIRIN EC 81 MG TABLET PO SCH (08:30)
[2020-04-11] MEDS ORDERED: EPOETIN ALFA-EPBX 10,000 UNIT/ML VIAL SUBCUT ONE (09:04)
[2020-04-11] MEDS ORDERED: EPOETIN ALFA-EPBX 10,000 UNIT/ML VIAL ONE (11:40)
[2020-04-11 12:36] VITALS: BP 132/64
[2020-04-11] MEDS ORDERED: FUROSEMIDE 80 MG TABLET PO SCH (16:00)
[2020-04-13 15:05] LABS: Phospholipase A2 Receptor IFA Negative (Negative); Phospholipase A2 Receptr ELISA < 2 RU/mL
== END 2020-04-11 13:08 | disposition home or self-care (01) | DRG 673 ==
LOC: EDUNIT# → EDBD → N.ED 15:54 → N.EDINP 19:54 → SUATTDRO 19:54 → N.TELES 03-31 07:39
PROVIDERS: ADMIT Phlebology; ATTEND Internal Medicine

== ENCOUNTER 2020-05-18 09:58 | Inpatient (IN) ==
[2020-05-18 10:57] LABS: Basophils % 0.5 % (0.0-0.8); Eosinophils # 0.2 10*3/uL (0.0-0.87); Hematocrit 22.4 VOL% (42.0-52.0); Immature Granulocytes % 0.5 %; Immature Granulocytes Absolute 0.03 #; Lymphocytes # 0.7 10*3/uL (1.4-4.0); Lymphocytes % 11.3 % (21.2-54.2); Mean Corpuscular HGB Conc 31.3 GM/DL (32-36); Mean Corpuscular Volume 85.8 FL (87-102); Monocytes % 11.9 % (1.7-12.7); Neutrophils % 72.8 % (38.7-73.9); Platelet Count 138 T/CUMM (130-400); Red Blood Count 2.61 MC/CUMM (3.8-5.5); Red Cell Distribution Width 17.2 % (9.3-17.3); White Blood Count 6.6 T/CUMM (4-12)
[2020-05-18 11:19] LABS: Osmolality,Calculated 305.1 MOS/KG (273-304)
[2020-05-18] MEDS ORDERED: ceFAZolin 2,000 MG in PREMIX 1 EACH IV ONE (11:30)
[2020-05-18] MEDS: SODIUM CHLORIDE 0.9% 250 ML IV SCH (11:40)
[2020-05-18] MEDS ORDERED: BUPIVACAINE 0.5% 50 ML VIAL ONE (12:46)
[2020-05-18] MEDS ORDERED: LIDOCAINE 1%/EPI INJ 20 ML VIAL ONE (12:46)
[2020-05-18] MEDS ORDERED: HEPARIN 5,000 UNIT/1 ML VIAL ONE (12:46)
[2020-05-18] MEDS ORDERED: fentaNYL 100 MCG/2 ML VIAL ONE (13:08)
[2020-05-18] MEDS ORDERED: propofoL 200 MG/20 ML VIAL IV ONE (13:08)
[2020-05-18] MEDS ORDERED: LIDOCAINE 2% 5 ML VIAL ONE (13:08)
[2020-05-18] MEDS ORDERED: MIDAZOLAM 2 MG/2 ML VIAL ONE (13:09)
[2020-05-18] MEDS ORDERED: DEXTROSE 50% 25 GM/50 ML VIAL IV PRN (14:40)
[2020-05-18] MEDS ORDERED: GLUCAGON 1 MG VIAL IM PRN (14:40)
[2020-05-18] MEDS ORDERED: guaiFENesin/DM ER 600-30 MG TABLET PO PRN (14:51)
[2020-05-18] MEDS ORDERED: ACETAMINOPHEN 325 MG TABLET PO PRN (14:51)
[2020-05-18] MEDS ORDERED: hydrALAZINE 20 MG/1 ML VIAL IV PRN (14:51)
[2020-05-18] MEDS ORDERED: ONDANSETRON 4 MG/2 ML VIAL IV PRN (14:51)
[2020-05-18] MEDS: AZITHROMYCIN INJ 500 MG in SODIUM CHLORIDE 0.9% 250 ML IV SCH (18:47)
[2020-05-18] MEDS: FUROSEMIDE 80 MG TABLET PO SCH (18:47)
[2020-05-18 20:37] LABS: Hepatitis B Core IgM Quant 0.44 Index; Hepatitis B Surface Ag Quant < 0.10 Index; Hepatitis B Surface Ag Result Negative (Negative); Hepatitis C Virus Ab Quant 0.02 Index; Hepatitis C Virus Ab Result Negative (Negative)
[2020-05-18] MEDS: ROSUVASTATIN 20 MG TABLET PO SCH (21:47)
[2020-05-18] MEDS: FERROUS GLUCONATE 324 MG TABLET PO SCH (21:55)
[2020-05-18] MEDS: PRAZOSIN 1 MG CAPSULE PO SCH (21:55)
[2020-05-18] MEDS: SODIUM BICARBONATE 650 MG TABLET PO SCH (21:55)
[2020-05-18] MEDS: CHOLECALCIFEROL 400 UNIT TABLET PO SCH (21:55)
[2020-05-18] MEDS: PIPERACILLIN/TAZOBACTAM 3,375 MG in SODIUM CHLORIDE 0.9% 100 ML IV SCH (21:56)
[2020-05-19] MEDS: ALBUTEROL 2.5 MG/3 ML NEB RESP TX SCH ×5 (00:13→19:37)
[2020-05-19] MEDS: SODIUM CHLORIDE 0.9% 250 ML IV SCH (00:14)
[2020-05-19 06:06] LABS: Calcium 8.9 MG/DL (8.5-10.1); Osmolality,Calculated 298.1 MOS/KG (273-304); Risk Ratio 2.71; Thyroid Stimulating Hormone 1.38 uIU/ml (0.358-3.74); VLDL CHOLESTEROL 12.2 MG/DL
[2020-05-19 06:38] LABS: Basophils % 0.4 % (0.0-0.8); Eosinophils # 0.2 10*3/uL (0.0-0.87); Eosinophils % 4.1 % (0.00-10.9); Hematocrit 23.1 VOL% (42.0-52.0); Immature Granulocytes % 0.2 %; Immature Granulocytes Absolute 0.01 #; Lymphocytes # 0.7 10*3/uL (1.4-4.0); Lymphocytes % 12.2 % (21.2-54.2); Mean Corpuscular HGB Conc 30.3 GM/DL (32-36); Mean Corpuscular Volume 86.8 FL (87-102); Neutrophils % 69.1 % (38.7-73.9); Platelet Count 103 T/CUMM (130-400); Red Blood Count 2.66 MC/CUMM (3.8-5.5); Red Cell Distribution Width 17.2 % (9.3-17.3); White Blood Count 5.4 T/CUMM (4-12)
[2020-05-19 06:46] LABS: Hypochromasia 1+; Platelet Estimate Decreased
[2020-05-19] MEDS: PANTOPRAZOLE 40 MG TABLET PO SCH (08:47)
[2020-05-19] MEDS: FUROSEMIDE 80 MG TABLET PO SCH ×2 (08:47→17:14)
[2020-05-19] MEDS: ASPIRIN EC 81 MG TABLET PO SCH (08:47)
[2020-05-19] MEDS: PRAZOSIN 1 MG CAPSULE PO SCH ×2 (08:47→20:54)
[2020-05-19] MEDS: ISOSORBIDE MONONITRATE 30 MG TABLET PO SCH (08:47)
[2020-05-19] MEDS: carvediloL 25 MG TABLET PO SCH ×2 (08:47→20:54)
[2020-05-19] MEDS: MULTIVITAMIN (BEROCCA) TABLET PO SCH (08:48)
[2020-05-19] MEDS: SODIUM BICARBONATE 650 MG TABLET PO SCH ×3 (10:16→20:54)
[2020-05-19] MEDS ORDERED: HEPARIN 10,000 UNIT/10 ML VIAL IV SCH (11:45)
[2020-05-19] MEDS: FERROUS GLUCONATE 324 MG TABLET PO SCH ×2 (14:20→20:55)
[2020-05-19] MEDS: CHOLECALCIFEROL 400 UNIT TABLET PO SCH ×2 (14:20→20:54)
[2020-05-19] MEDS: AZITHROMYCIN INJ 500 MG in SODIUM CHLORIDE 0.9% 250 ML IV SCH (18:18)
[2020-05-19] MEDS: PIPERACILLIN/TAZOBACTAM 3,375 MG in SODIUM CHLORIDE 0.9% 100 ML IV SCH (19:35)
[2020-05-19] MEDS: ROSUVASTATIN 20 MG TABLET PO SCH (20:53)
[2020-05-20] MEDS: ALBUTEROL 2.5 MG/3 ML NEB RESP TX SCH ×4 (00:52→19:16)
[2020-05-20 05:53] LABS: Basophils % 0.5 % (0.0-0.8); Eosinophils # 0.3 10*3/uL (0.0-0.87); Eosinophils % 5.6 % (0.00-10.9); Hematocrit 22.4 VOL% (42.0-52.0); Immature Granulocytes % 0.3 %; Immature Granulocytes Absolute 0.02 #; Lymphocytes # 0.8 10*3/uL (1.4-4.0); Lymphocytes % 12.7 % (21.2-54.2); Mean Corpuscular HGB Conc 31.3 GM/DL (32-36); Mean Corpuscular Volume 85.8 FL (87-102); Monocytes % 13.4 % (1.7-12.7); Neutrophils % 67.5 % (38.7-73.9); Platelet Count 105 T/CUMM (130-400); Red Blood Count 2.61 MC/CUMM (3.8-5.5); Red Cell Distribution Width 17.3 % (9.3-17.3); White Blood Count 5.9 T/CUMM (4-12)
[2020-05-20] MEDS: PIPERACILLIN/TAZOBACTAM 3,375 MG in SODIUM CHLORIDE 0.9% 100 ML IV SCH (06:02)
[2020-05-20 06:13] LABS: Hypochromasia 2+; Microcytosis 1+; Ovalocytes Slight; Platelet Estimate Decreased
[2020-05-20 06:26] LABS: Calcium 8.8 MG/DL (8.5-10.1); Osmolality,Calculated 292.1 MOS/KG (273-304)
[2020-05-20] MEDS: PRAZOSIN 1 MG CAPSULE PO SCH ×2 (16:43→21:00)
[2020-05-20] MEDS: ISOSORBIDE MONONITRATE 30 MG TABLET PO SCH (16:43)
[2020-05-20] MEDS: MULTIVITAMIN (BEROCCA) TABLET PO SCH (16:43)
[2020-05-20] MEDS: SODIUM BICARBONATE 650 MG TABLET PO SCH ×3 (16:43→20:21)
[2020-05-20] MEDS: ASPIRIN EC 81 MG TABLET PO SCH (16:43)
[2020-05-20] MEDS: carvediloL 25 MG TABLET PO SCH ×2 (16:43→20:21)
[2020-05-20] MEDS: CHOLECALCIFEROL 400 UNIT TABLET PO SCH ×2 (16:44→20:21)
[2020-05-20] MEDS: FUROSEMIDE 80 MG TABLET PO SCH ×2 (16:44→19:56)
[2020-05-20] MEDS: FERROUS GLUCONATE 324 MG TABLET PO SCH ×2 (16:44→20:21)
[2020-05-20] MEDS: PANTOPRAZOLE 40 MG TABLET PO SCH (16:44)
[2020-05-20] MEDS: ROSUVASTATIN 20 MG TABLET PO SCH (20:21)
[2020-05-21] MEDS: ALBUTEROL 2.5 MG/3 ML NEB RESP TX SCH ×2 (01:38→07:39)
[2020-05-21 05:18] LABS: Basophils % 0.5 % (0.0-0.8); Eosinophils # 0.4 10*3/uL (0.0-0.87); Eosinophils % 6.3 % (0.00-10.9); Hematocrit 28.5 VOL% (42.0-52.0); Immature Granulocytes % 0.3 %; Immature Granulocytes Absolute 0.02 #; Lymphocytes # 0.8 10*3/uL (1.4-4.0); Lymphocytes % 12.4 % (21.2-54.2); Mean Corpuscular HGB Conc 31.6 GM/DL (32-36); Mean Corpuscular Volume 84.6 FL (87-102); Monocytes % 15.1 % (1.7-12.7); Neutrophils % 65.4 % (38.7-73.9); Platelet Count 107 T/CUMM (130-400); Red Cell Distribution Width 16.2 % (9.3-17.3); White Blood Count 6.2 T/CUMM (4-12)
[2020-05-21 05:19] LABS: Red Blood Count 3.37 MC/CUMM (3.8-5.5)
[2020-05-21 05:36] LABS: Calcium 9.1 MG/DL (8.5-10.1); Osmolality,Calculated 282.5 MOS/KG (273-304)
[2020-05-21] MEDS: PRAZOSIN 1 MG CAPSULE PO SCH (10:37)
[2020-05-21] MEDS: FUROSEMIDE 80 MG TABLET PO SCH ×2 (10:37→16:20)
[2020-05-21] MEDS: ASPIRIN EC 81 MG TABLET PO SCH (10:37)
[2020-05-21] MEDS: MULTIVITAMIN (BEROCCA) TABLET PO SCH (10:38)
[2020-05-21] MEDS: CHOLECALCIFEROL 400 UNIT TABLET PO SCH (10:38)
[2020-05-21] MEDS: FERROUS GLUCONATE 324 MG TABLET PO SCH (10:38)
[2020-05-21] MEDS: PANTOPRAZOLE 40 MG TABLET PO SCH (10:38)
[2020-05-21] MEDS: carvediloL 25 MG TABLET PO SCH (10:38)
[2020-05-21] MEDS: ISOSORBIDE MONONITRATE 30 MG TABLET PO SCH (10:38)
[2020-05-21] MEDS: SODIUM BICARBONATE 650 MG TABLET PO SCH ×2 (10:38→16:20)
[2020-05-21 11:22] VITALS: BP 176/86
== END 2020-05-21 16:23 | disposition home health service (06) | DRG 291 ==
LOC: N.OR 09:58 → N.SDSINP 10:10 → N.3E 14:40 → SUATTDRO 14:40 → N.3E 16:05
PROVIDERS: ADMIT Hospitalist; ATTEND Family Medicine

== ENCOUNTER 2021-01-04 10:33 | Inpatient (IN) ==
[2021-01-04 11:59] LABS: Basophils % 0.2 % (0.0-0.8); Eosinophils % 0.1 % (0.00-10.9); Hematocrit 29.9 VOL% (42.0-52.0); Hemoglobin 9.5 GM/DL (14.0-18.0); Immature Granulocytes % 2.6 %; Immature Granulocytes Absolute 0.38 #; Lymphocytes # 0.8 10*3/uL (1.4-4.0); Lymphocytes % 5.2 % (21.2-54.2); Mean Corpuscular HGB Conc 31.8 GM/DL (32-36); Mean Corpuscular Volume 90.3 FL (87-102); Mean Platelet Volume 12.1 FL (9.6-12.0); Monocytes % 12.2 % (1.7-12.7); Neutrophils % 79.7 % (38.7-73.9); Platelet Count 203 T/CUMM (130-400); Red Blood Count 3.31 MC/CUMM (3.8-5.5); Red Cell Distribution Width 14.9 % (9.3-17.3); White Blood Count 14.6 T/CUMM (4-12)
[2021-01-04] MEDS ORDERED: ENOXAPARIN 100 MG/ML SYRINGE SUBCUT STA (12:05)
[2021-01-04 12:09] LABS: Partial Thromboplastin Time 29.1 SECS (23.9-33.8)
[2021-01-04 12:18] LABS: Calcium 10.1 MG/DL (8.5-10.1); Osmolality,Calculated 300.8 MOS/KG (273-304); Potassium 3.7 MMOL/L (3.5-5.1)
[2021-01-04 12:40] LABS: Band Neutrophils 16 % (0-10); Lymphocytes 10 % (20-55); Myelocytes 1 %; Segmented Neutrophils 57 % (50-85); Total Cells Counted 100
[2021-01-04 12:41] LABS: Anisocytosis 1+; Atypical Lymphocytes Few; Platelet Estimate Normal; Polychromasia Slight
[2021-01-04] MEDS ORDERED: GLUCAGON 1 MG VIAL IM PRN (14:14)
[2021-01-04] MEDS ORDERED: DEXTROSE 50% 25 GM/50 ML VIAL IV PRN (14:14)
[2021-01-04] MEDS ORDERED: VANCOMYCIN INJ 2,250 MG in SODIUM CHLORIDE 0.9% 500 ML IV ONE (17:00)
[2021-01-04] MEDS: SEVELAMER CARBONATE 800 MG TABLET PO SCH ×2 (17:37→20:49)
[2021-01-04] MEDS: PIPERACILLIN/TAZOBACTAM 2,250 MG in SODIUM CHLORIDE 0.9% 100 ML IV SCH (19:55)
[2021-01-04] MEDS: FERROUS GLUCONATE 324 MG TABLET PO SCH (20:49)
[2021-01-04] MEDS: carvediloL 25 MG TABLET PO SCH (20:49)
[2021-01-04] MEDS: ROSUVASTATIN 20 MG TABLET PO SCH (20:49)
[2021-01-04] MEDS: PRAZOSIN 1 MG CAPSULE PO SCH (20:49)
[2021-01-05] MEDS: ENOXAPARIN 100 MG/ML SYRINGE SUBCUT SCH ×2 (00:06→13:35)
[2021-01-05] MEDS: PIPERACILLIN/TAZOBACTAM 2,250 MG in SODIUM CHLORIDE 0.9% 100 ML IV SCH (04:04)
[2021-01-05 05:49] LABS: Basophils # 0.1 10*3/uL (0.0-0.2); Basophils % 0.3 % (0.0-0.8); Eosinophils # 0.1 10*3/uL (0.0-0.87); Eosinophils % 0.6 % (0.00-10.9); Hemoglobin 9.5 GM/DL (14.0-18.0); Immature Granulocytes % 1.1 %; Immature Granulocytes Absolute 0.16 #; Lymphocytes % 6.7 % (21.2-54.2); Mean Corpuscular HGB Conc 31.7 GM/DL (32-36); Mean Corpuscular Volume 89.6 FL (87-102); Mean Platelet Volume 11.8 FL (9.6-12.0); Monocytes % 9.6 % (1.7-12.7); Neutrophils % 81.7 % (38.7-73.9); Platelet Count 207 T/CUMM (130-400); Red Blood Count 3.35 MC/CUMM (3.8-5.5); Red Cell Distribution Width 14.6 % (9.3-17.3); White Blood Count 14.6 T/CUMM (4-12)
[2021-01-05 06:15] LABS: Calcium 10.1 MG/DL (8.5-10.1); Risk Ratio 4.44; VLDL Cholesterol 20.6 MG/DL
[2021-01-05 06:29] LABS: Band Neutrophils 1 % (0-10); Hypochromasia 1+; Lymphocytes 1 % (20-55); Microcytosis 1+; Segmented Neutrophils 90 % (50-85); Total Cells Counted 100
[2021-01-05 06:30] LABS: Platelet Estimate Normal
[2021-01-05] MEDS: FERROUS GLUCONATE 324 MG TABLET PO SCH ×2 (08:52→21:21)
[2021-01-05] MEDS: ISOSORBIDE MONONITRATE 30 MG TABLET PO SCH (08:52)
[2021-01-05] MEDS: SEVELAMER CARBONATE 800 MG TABLET PO SCH ×3 (08:52→17:06)
[2021-01-05] MEDS: ASPIRIN EC 81 MG TABLET PO SCH (08:52)
[2021-01-05] MEDS: MULTIVITAMIN (CENTRUM) TABLET PO SCH (08:52)
[2021-01-05] MEDS: carvediloL 25 MG TABLET PO SCH ×2 (08:52→21:21)
[2021-01-05 09:01] LABS: Bilirubin,Urine Negative (Negative); Blood, Urine Negative (Negative); Glucose,Urine (UA) Negative (Negative); Ketones,Urine Negative (Negative); Nitrite,Urine Negative (Negative); Protein,Urine 100 MG/DL; RBC,Urine 2 /HPF (0-4); Squamous Epithelial Cell,Urine Occasional /HPF (0-10); Urine Appearance CLOUDY (Clear); Urine Color Yellow (Yellow); Urine Specific Gravity 1.017 (1.001-1.035); Urine Urobilinogen < 2.0 EU/DL (0.2-1.0)
[2021-01-05] MEDS: PRAZOSIN 1 MG CAPSULE PO SCH ×2 (13:36→21:21)
[2021-01-05] MEDS ORDERED: VANCOMYCIN INJ 750 MG in SODIUM CHLORIDE 0.9% 250 ML IV PRN (17:00)
[2021-01-05] MEDS: cefTRIAXone 1,000 MG in SODIUM CHLORIDE 0.9% 100 ML IV SCH (17:06)
[2021-01-05] MEDS: ROSUVASTATIN 20 MG TABLET PO SCH (18:46)
[2021-01-06] MEDS: ENOXAPARIN 100 MG/ML SYRINGE SUBCUT SCH (01:17)
[2021-01-06] MEDS: SEVELAMER CARBONATE 800 MG TABLET PO SCH ×3 (07:44→16:26)
[2021-01-06] MEDS: MULTIVITAMIN (CENTRUM) TABLET PO SCH (08:43)
[2021-01-06] MEDS: PRAZOSIN 1 MG CAPSULE PO SCH ×2 (08:44→22:36)
[2021-01-06] MEDS: carvediloL 25 MG TABLET PO SCH ×2 (08:44→22:34)
[2021-01-06] MEDS: FERROUS GLUCONATE 324 MG TABLET PO SCH ×2 (08:44→22:32)
[2021-01-06] MEDS: ASPIRIN EC 81 MG TABLET PO SCH (08:44)
[2021-01-06] MEDS: ISOSORBIDE MONONITRATE 30 MG TABLET PO SCH (08:44)
[2021-01-06] MEDS: APIXABAN 2.5 MG TABLET PO SCH ×2 (08:50→22:31)
[2021-01-06] MEDS: cefTRIAXone 1,000 MG in SODIUM CHLORIDE 0.9% 100 ML IV SCH (16:26)
[2021-01-06] MEDS: ROSUVASTATIN 20 MG TABLET PO SCH (22:31)
[2021-01-07 08:13] VITALS: BP 137/46
[2021-01-07] MEDS: SEVELAMER CARBONATE 800 MG TABLET PO SCH (08:42)
[2021-01-07] MEDS: APIXABAN 2.5 MG TABLET PO SCH (08:42)
[2021-01-07] MEDS: ASPIRIN EC 81 MG TABLET PO SCH (08:42)
[2021-01-07] MEDS: MULTIVITAMIN (CENTRUM) TABLET PO SCH (08:42)
[2021-01-07] MEDS: ISOSORBIDE MONONITRATE 30 MG TABLET PO SCH (08:42)
[2021-01-07] MEDS: PRAZOSIN 1 MG CAPSULE PO SCH (08:43)
[2021-01-07] MEDS: carvediloL 25 MG TABLET PO SCH (08:43)
[2021-01-07] MEDS: FERROUS GLUCONATE 324 MG TABLET PO SCH (08:43)
== END 2021-01-07 11:04 | disposition home or self-care (01) | DRG 175 ==
LOC: N.ED 10:33 → N.EDINP 14:14 → SUATTDRO 14:14 → N.TELEN 15:04
PROVIDERS: ADMIT Internal Medicine; ATTEND Internal Medicine Geriatric Medicine

== ENCOUNTER 2022-06-17 10:48 | Inpatient (IN) ==
[2022-06-17] MEDS ORDERED: NITROGLYCERIN SL 0.4 MG TABLET SL PRN (11:17)
[2022-06-17] MEDS ORDERED: ASPIRIN 325 MG TABLET PO STA (11:17)
[2022-06-17 11:30] LABS: Basophils % 0.4 % (0.0-0.8); Eosinophils # 0.1 10*3/uL (0.0-0.87); Eosinophils % 1.1 % (0.00-10.9); Hemoglobin 9.1 GM/DL (14.0-18.0); Immature Granulocytes % 0.5 %; Immature Granulocytes Absolute 0.04 #; Lymphocytes % 12.4 % (21.2-54.2); Mean Corpuscular HGB Conc 30.3 GM/DL (32-36); Mean Corpuscular Volume 92.3 FL (87-102); Monocytes # 0.7 10*3/uL (0.11-0.8); Monocytes % 9.1 % (1.7-12.7); Neutrophils % 76.5 % (38.7-73.9); Platelet Count 168 T/CUMM (130-400); Red Blood Count 3.25 MC/CUMM (3.8-5.5); Red Cell Distribution Width 16.3 % (9.3-17.3); White Blood Count 7.9 T/CUMM (4-12)
[2022-06-17 11:37] LABS: Albumin 3.2 G/DL (3.4-5.0); Bilirubin,Total 0.6 MG/DL (0.20-1.00); Calcium 9.9 MG/DL (8.5-10.1); Potassium 3.7 MMOL/L (3.5-5.1); Total Protein 6.8 G/DL (6.4-8.2)
[2022-06-17 11:38] LABS: PT Patient Result 11.1 SECS (10.1-12.1); Partial Thromboplastin Time 28.9 SECS (23.7-32.9)
[2022-06-17] MEDS ORDERED: ONDANSETRON 4 MG/2 ML VIAL IV PRN (12:17)
[2022-06-17] MEDS ORDERED: ALBUTEROL/IPRATROPIUM 3 ML NEB RESP TX PRN (12:17)
[2022-06-17] MEDS ORDERED: ENOXAPARIN 40 MG/0.4 ML SYRINGE SUBCUT STA (12:34)
[2022-06-17] MEDS ORDERED: CLOPIDOGREL 300 MG TABLET PO ONE (12:49)
[2022-06-17] MEDS ORDERED: FUROSEMIDE 40 MG/4 ML VIAL IV ONE (12:53)
[2022-06-17 13:10] LABS: Risk Ratio 2.79; Thyroid Stimulating Hormone 0.929 uIU/ml (0.358-3.74); VLDL Cholesterol 16.2 MG/DL
[2022-06-17] MEDS: ROSUVASTATIN 20 MG TABLET PO SCH (15:45)
[2022-06-17] MEDS: HEPARIN DRIP 25,000 UNITS/500 ML PREMIX IV SCH (15:45)
[2022-06-17] MEDS: carvediloL 25 MG TABLET PO SCH (22:00)
[2022-06-17] MEDS: PRAZOSIN 1 MG CAPSULE PO SCH (22:00)
[2022-06-18 05:33] LABS: Basophils % 0.4 % (0.0-0.8); Eosinophils # 0.1 10*3/uL (0.0-0.87); Eosinophils % 0.9 % (0.00-10.9); Hematocrit 30.2 VOL% (42.0-52.0); Hemoglobin 9.1 GM/DL (14.0-18.0); Immature Granulocytes % 0.3 %; Immature Granulocytes Absolute 0.02 #; Lymphocytes # 0.8 10*3/uL (1.4-4.0); Lymphocytes % 11.4 % (21.2-54.2); Mean Corpuscular HGB Conc 30.1 GM/DL (32-36); Mean Corpuscular Volume 92.4 FL (87-102); Monocytes # 0.7 10*3/uL (0.11-0.8); Monocytes % 9.5 % (1.7-12.7); Neutrophils % 77.5 % (38.7-73.9); Platelet Count 152 T/CUMM (130-400); Red Blood Count 3.27 MC/CUMM (3.8-5.5); White Blood Count 6.9 T/CUMM (4-12)
[2022-06-18 05:49] LABS: Albumin 2.8 G/DL (3.4-5.0); Bilirubin,Total 0.5 MG/DL (0.20-1.00); Osmolality,Calculated 279.5 MOS/KG (273-304); Potassium 3.4 MMOL/L (3.5-5.1); Total Protein 6.9 G/DL (6.4-8.2)
[2022-06-18 05:54] LABS: Anisocytosis 1+; Platelet Estimate Adequate; Poikilocytosis 1+
[2022-06-18] MEDS: ROSUVASTATIN 20 MG TABLET PO SCH (09:11)
[2022-06-18] MEDS: PRAZOSIN 1 MG CAPSULE PO SCH ×2 (09:11→20:27)
[2022-06-18] MEDS: PANTOPRAZOLE 40 MG TABLET PO SCH (09:11)
[2022-06-18] MEDS: carvediloL 25 MG TABLET PO SCH ×2 (09:12→20:27)
[2022-06-18] MEDS: CLOPIDOGREL 75 MG TABLET PO SCH (09:12)
[2022-06-18] MEDS: ISOSORBIDE MONONITRATE 30 MG TABLET PO SCH (09:12)
[2022-06-18] MEDS: ASPIRIN EC 81 MG TABLET PO SCH (09:12)
[2022-06-18] MEDS: FUROSEMIDE 40 MG/4 ML VIAL IV SCH ×2 (09:13→16:53)
[2022-06-18 11:30] LABS: % Iron Saturation 15.8 % (18-50); Ferritin 1120.8 ng/mL (26-388)
[2022-06-18] MEDS: HEPARIN DRIP 25,000 UNITS/500 ML PREMIX IV SCH (11:30)
[2022-06-18] MEDS ORDERED: HEPARIN 5,000 UNIT/1 ML VIAL SUBCUT ONE ×2 (14:30)
[2022-06-19 05:19] LABS: Basophils % 0.3 % (0.0-0.8); Eosinophils # 0.2 10*3/uL (0.0-0.87); Eosinophils % 3.4 % (0.00-10.9); Hematocrit 27.8 VOL% (42.0-52.0); Hemoglobin 8.5 GM/DL (14.0-18.0); Lymphocytes % 17.2 % (21.2-54.2); Mean Corpuscular HGB Conc 30.6 GM/DL (32-36); Mean Corpuscular Volume 92.7 FL (87-102); Mean Platelet Volume 12.5 FL (9.6-12.0); Monocytes # 0.8 10*3/uL (0.11-0.8); Monocytes % 12.9 % (1.7-12.7); Neutrophils % 65.7 % (38.7-73.9); Platelet Count 137 T/CUMM (130-400); Red Cell Distribution Width 15.9 % (9.3-17.3); White Blood Count 5.8 T/CUMM (4-12)
[2022-06-19 05:32] LABS: Calcium 10.1 MG/DL (8.5-10.1); Osmolality,Calculated 283.8 MOS/KG (273-304); Potassium 3.4 MMOL/L (3.5-5.1)
[2022-06-19 05:40] LABS: Eosinophils 4 % (0-10); Lymphocytes 15 % (20-55)
[2022-06-19 05:41] LABS: Hypochromia Slight; Microcytosis Slight; Platelet Estimate Adequate
[2022-06-19] MEDS ORDERED: POTASSIUM CHLORIDE 10 MEQ TABLET PO ONE (07:55)
[2022-06-19] MEDS: HEPARIN DRIP 25,000 UNITS/500 ML PREMIX IV SCH (08:11)
[2022-06-19] MEDS ORDERED: HEPARIN 5,000 UNIT/1 ML VIAL SUBCUT ONE (08:30)
[2022-06-19] MEDS: CLOPIDOGREL 75 MG TABLET PO SCH (09:00)
[2022-06-19] MEDS: ISOSORBIDE MONONITRATE 30 MG TABLET PO SCH (09:00)
[2022-06-19] MEDS: PANTOPRAZOLE 40 MG TABLET PO SCH (09:00)
[2022-06-19] MEDS: ASPIRIN EC 81 MG TABLET PO SCH (09:00)
[2022-06-19] MEDS: carvediloL 25 MG TABLET PO SCH ×2 (09:00→20:40)
[2022-06-19] MEDS: FUROSEMIDE 40 MG/4 ML VIAL IV SCH ×2 (09:00→16:45)
[2022-06-19] MEDS: ROSUVASTATIN 20 MG TABLET PO SCH (09:00)
[2022-06-19] MEDS: PRAZOSIN 1 MG CAPSULE PO SCH ×2 (09:00→20:41)
[2022-06-19] MEDS: INSULIN LISPRO 100 UNIT/ML SUBCUT SCH ×4 (10:07→20:02)
[2022-06-19] MEDS: ALBUTEROL/IPRATROPIUM 3 ML NEB RESP TX SCH (19:17)
[2022-06-20] MEDS: ALBUTEROL/IPRATROPIUM 3 ML NEB RESP TX SCH ×4 (00:25→19:00)
[2022-06-20 06:15] LABS: Basophils % 0.3 % (0.0-0.8); Eosinophils # 0.3 10*3/uL (0.0-0.87); Eosinophils % 4.3 % (0.00-10.9); Hematocrit 27.4 VOL% (42.0-52.0); Hemoglobin 8.1 GM/DL (14.0-18.0); Immature Granulocytes % 0.5 %; Immature Granulocytes Absolute 0.03 #; Lymphocytes # 0.9 10*3/uL (1.4-4.0); Lymphocytes % 14.6 % (21.2-54.2); Mean Corpuscular HGB Conc 29.6 GM/DL (32-36); Mean Corpuscular Volume 96.1 FL (87-102); Mean Platelet Volume 12.6 FL (9.6-12.0); Monocytes # 0.6 10*3/uL (0.11-0.8); Monocytes % 10.8 % (1.7-12.7); Neutrophils % 69.5 % (38.7-73.9); Platelet Count 173 T/CUMM (130-400); Red Blood Count 2.85 MC/CUMM (3.8-5.5); Red Cell Distribution Width 15.9 % (9.3-17.3); White Blood Count 5.8 T/CUMM (4-12)
[2022-06-20 06:20] LABS: Calcium 9.3 MG/DL (8.5-10.1); Osmolality,Calculated 289.7 MOS/KG (273-304); Potassium 4.1 MMOL/L (3.5-5.1)
[2022-06-20] MEDS: INSULIN LISPRO 100 UNIT/ML SUBCUT SCH ×4 (07:46→20:53)
[2022-06-20] MEDS: FUROSEMIDE 40 MG/4 ML VIAL IV SCH ×2 (07:55→15:05)
[2022-06-20] MEDS ORDERED: diphenhydrAMINE CAP 50 MG CAPSULE PO ONE (11:30)
[2022-06-20] MEDS ORDERED: DIAZEPAM 5 MG TABLET PO ONE (11:30)
[2022-06-20] MEDS ORDERED: MIDAZOLAM 2 MG/2 ML VIAL ONE (13:12)
[2022-06-20] MEDS ORDERED: fentaNYL 100 MCG/2 ML VIAL ONE (13:12)
[2022-06-20] MEDS: ISOSORBIDE MONONITRATE 30 MG TABLET PO SCH (14:44)
[2022-06-20] MEDS: PRAZOSIN 1 MG CAPSULE PO SCH ×2 (14:44→20:51)
[2022-06-20] MEDS: ROSUVASTATIN 20 MG TABLET PO SCH (14:44)
[2022-06-20] MEDS: carvediloL 25 MG TABLET PO SCH ×2 (14:44→20:51)
[2022-06-20] MEDS: PANTOPRAZOLE 40 MG TABLET PO SCH (14:45)
[2022-06-20] MEDS: ASPIRIN EC 81 MG TABLET PO SCH (14:45)
[2022-06-20] MEDS: CLOPIDOGREL 75 MG TABLET PO SCH (14:47)
[2022-06-21] MEDS: ALBUTEROL/IPRATROPIUM 3 ML NEB RESP TX SCH ×3 (00:04→13:45)
[2022-06-21 05:04] LABS: Basophils % 0.3 % (0.0-0.8); Eosinophils # 0.2 10*3/uL (0.0-0.87); Eosinophils % 2.4 % (0.00-10.9); Hemoglobin 8.6 GM/DL (14.0-18.0); Immature Granulocytes % 0.5 %; Immature Granulocytes Absolute 0.03 #; Lymphocytes # 0.7 10*3/uL (1.4-4.0); Lymphocytes % 10.5 % (21.2-54.2); Mean Corpuscular HGB Conc 30.7 GM/DL (32-36); Mean Corpuscular Volume 92.1 FL (87-102); Monocytes # 0.9 10*3/uL (0.11-0.8); Monocytes % 14.1 % (1.7-12.7); Neutrophils % 72.2 % (38.7-73.9); Platelet Count 175 T/CUMM (130-400); Red Blood Count 3.04 MC/CUMM (3.8-5.5); Red Cell Distribution Width 15.9 % (9.3-17.3); White Blood Count 6.6 T/CUMM (4-12)
[2022-06-21 05:25] LABS: Calcium 10.1 MG/DL (8.5-10.1)
[2022-06-21] MEDS: INSULIN LISPRO 100 UNIT/ML SUBCUT SCH ×2 (07:44→13:04)
[2022-06-21] MEDS: FUROSEMIDE 40 MG/4 ML VIAL IV SCH (09:41)
[2022-06-21] MEDS: ISOSORBIDE MONONITRATE 30 MG TABLET PO SCH (09:42)
[2022-06-21] MEDS: PRAZOSIN 1 MG CAPSULE PO SCH (09:42)
[2022-06-21] MEDS: ROSUVASTATIN 20 MG TABLET PO SCH (09:42)
[2022-06-21] MEDS: PANTOPRAZOLE 40 MG TABLET PO SCH (09:42)
[2022-06-21] MEDS: carvediloL 25 MG TABLET PO SCH (09:42)
[2022-06-21] MEDS: ASPIRIN EC 81 MG TABLET PO SCH (09:42)
[2022-06-21 13:36] VITALS: BP 120/57
[2022-06-22] MEDS ORDERED: ASPIRIN EC 325 MG TABLET PO SCH (09:00)
== END 2022-06-21 15:36 | disposition home or self-care (01) | DRG 280 ==
LOC: N.ED 10:48 → N.TELES 12:17 → SUATTDRO 12:17 → N.TELES 14:05
PROVIDERS: ADMIT Internal Medicine; ATTEND Emergency Medicine